=== PATIENT | female | born 2005 | race Two or more races ===

== ENCOUNTER 2024-06-28 09:48 | Outpatient (CLI) | payer OTHER, SELFPAY ==
--- NOTE | ~2024-06-28 | US_ITS ---
Pelvic ultrasound. Clinical History: First trimester , amenorrhea, establish dates Technique: Realtime transabdominal scanning of the pelvis was performed. Color flow Doppler and Doppl er spectral analysis were performed. Findings: The uterus is anteverted, and contains an intrauterine gestation. Downey-rump length of 5.7 cm corresponds to an estimated gestational age of 12 weeks 2 days. heart rate is 159 bpm. Neither ovary seen. No adnexal mass seen. There is no evidence of free fluid in the cul de sac. Impression: Live intrauterine gestation, with estimated gestational age of 12 weeks 2 days. heart rate is 1 59 bpm. Sonographic WOOD is 01/08/2025. Reviewed, dictated and finalized at location M. B THERAPY MANAGER Impression: Live intrauterine gestation, with estimated gestational age of 12 weeks 2 days. heart rate is 159 bpm. Sonographic WOOD is 01/08/2025.
== END 2024-06-28 09:49 | disposition home or self-care (01) ==
PROVIDERS: PCP Obstetrics & Gynecology; Visit Provider Nurse Practitioner Obstetrics & Gynecology
DX: N91.2 Amenorrhea, unspecified (principal); Z3A.12 12 weeks gestation of pregnancy
CPT/HCPCS: 76801

== ENCOUNTER 2024-07-26 10:58 | Outpatient (CLI) | payer OTHER, SELFPAY ==
[2024-07-26 11:30] LABS: Hematocrit 31.7 % (37.0-47.0); Hemoglobin 10.1 g/dL (12.0-15.0); Immature Platelet Fraction Pct 14.8 % (0.9-11.2); Mean Corpuscular HGB Conc 31.9 g/dl (32-36); Mean Corpuscular Hemoglobin 26.4 pg (26-34); Mean Platelet Volume 12.7 fl (7.4-10.4); Platelet Count Result 111 k/mm3 (150-375); Red Blood Count 3.82 M/mm3 (4.2-5.4); Red Cell Distribution Width 16.4 % (11.5-14.5); White Blood Count 6.2 K/mm3 (4.5-10.0)
[2024-07-26 12:01] LABS: Add Urine Microscopic? NO; Appearance Urine Clear (Clear); Bilirubin Urine Negative (Negative); Blood Urine Negative (Negative); Color Urine Yellow (Yellow); Glucose Urine UA Negative (Negative); Ketones Urine Negative (Negative); Leukocyte Esterase Ur Negative LEU/UL (Negative); Nitrate Urine Negative (Negative); Protein Urine Negative (Negative); Specific Grav Ur 1.005 (1.001-1.035); Urobilinogen Urine 0.2 mg/dL (<2.0)
[2024-07-26 12:18] LABS: HIV 1/2 Ab P24 Ag Result Negative (Negative)
[2024-07-26 12:21] LABS: Hepatitis B Surface Antigen Negative (Negative); Rubella IgG Antibody 75.2 IU/ML
[2024-07-26 12:29] LABS: Syphilis IgG/IgM Antibody Negative (Negative)
[2024-07-26 12:38] LABS: Hepatitis C Virus Antibody Negative (Negative)
[2024-07-27 17:12] LABS: Varicella IgG Antibody <1.00 S/CO
[2024-07-27 18:43] LABS: Hematocrit 31.9 % (35.0-45.0); Hemoglobin 10.4 g/dL (11.7-15.5); MCH 26.9 pg (27.0-33.0); MCV 82.4 fL (80.0-100.0); RDW 16.4 % (11.0-15.0); Red Blood Cell Count 3.87 Million/uL (3.80-5.10)
== END 2024-07-26 10:59 | disposition home or self-care (01) ==
PROVIDERS: Visit Provider Obstetrics & Gynecology
DX: Z34.90 Encounter for supervision of normal pregnancy, unspecified, unspecified trimester (principal); Z3A.00 Weeks of gestation of pregnancy not specified
CPT/HCPCS: 36415; 81003; 83021; 84443; 85027; 85055; 86593; 86703; 86762; 86787; 86803; 86850; 86900; 86901; 87086; 87340; G0432

== ENCOUNTER 2024-10-07 12:45 | Outpatient (CLI) | payer OTHER, SELFPAY ==
[2024-10-07 14:44] LABS: Hematocrit 31.7 % (37.0-47.0); Hemoglobin 9.8 g/dL (12.0-15.0); Immature Platelet Fraction Pct 13.3 % (0.9-11.2); Mean Corpuscular HGB Conc 30.9 g/dl (32-36); Mean Corpuscular Hemoglobin 28.1 pg (26-34); Mean Corpuscular Volume 90.8 fl (80-100); Mean Platelet Volume 13.4 fl (7.4-10.4); Platelet Count Result 114 k/mm3 (150-375); Red Blood Count 3.49 M/mm3 (4.2-5.4); Red Cell Distribution Width 16.6 % (11.5-14.5); White Blood Count 8.2 K/mm3 (4.5-10.0)
[2024-10-07 15:02] LABS: Glucose 1 Hour PP 50gm Dose 98 mg/dL
--- OUTSIDE RECORDS SUMMARY | 2024-10-08 13:28 | XMS_ITS | Clinical Summary ---
Author Organization [facility] Address [address] [place] [address] Phone Care Team Providers Care Strategic Procurement Manager Name Role Phone Unavailable Primary Care Provider Unavailabl e Encounters Date Type Department Care Team Description 09/20/2024 External Device Data STL ABSTRACTION Provider, Abstract 08/24/2024 External Device Data STL ABSTRACTION Provider, Abstract 08/24/2024 External Device Data STL ABSTRACTION Provider, Abstract 08/23/2024 External Device Data STL ABSTRACTION Provider, Abstract 08/22/2024 10:31 AM CDT - 08/22/2024 11:59 PM CDT Hospital Encounter [facility] Maternal and Health [facility] [address] [place] [id number] Ruslan Cortez MD Discharge Disposition: Home or Self Care from Last 3 Months Social History Tobacco Use Types Packs/Day Years Used Date Smoking Tobacco: Never Assessed Comments Unknown Sex and Gender Information Value Date Recorded Sex Assigned at Not on file Legal Sex Female 1:58 PM 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 BLASTING Gender Identity Not on file Sexual Orientation Not on file Plan of Treatment Health Maintenance Due Date Last Done Comments CHLAMYDIA SCREENING (ANNUAL) 11-24 YEARS 01/20/2015 HPV VACCINES (1 - 3-dose series) 01/20/2019 DTAP/TDAP/TD VACCINES (1 - Tdap) 01/20/2023 HEPATITIS B VACCINES (1 of 3 - 19+ 3-dose series) 01/06 INFLUENZA VACCINE (#1) 2024 Procedures Procedure Name Priority Date/Time Associated Diagnosis Comments US OB 14+ WKS SINGLE GEST Routine 08/22/2024 11:41 AM CDT screening for malformation using ultrasonics from Last 3 Months Results * US OB 14+ WKS SINGLE GEST (08/22/2024 11:41 AM CDT) Anatomical Region Laterality Modality Pelvis Ultrasound 08/22/2024 10:4 6 AM CDT Narrative 08/22/2024 11:50 AM CDT STL BASIC ----- Pat. Name: KEITH ROSENBERG Study Date: 08/22/2024 10:46am Pat. NO: [id number] Referring MD: RUSLAN CORTEZ MD Site: [place] [employer] Operator: Tequila Low RDMS : 2005 Age: 19 ----- INDICATION ----- Anatomy Survey CODING ----- Diagnoses Z3A.20: Weeks of gestation Z36.3: Encounter for screening for malformations Procedures [id number]: Ultrasound, uterus, real time with image documentation, and maternal evaluation, after first trimester (> or = 14 weeks 0 days), transabdominal approach; single or first gestation METHOD ----- Transabdominal ultrasound examination ----- Umana . Number of fetuses: 1 DATING ----- Cycle: regular cycle Method of dating: based on stated WOOD GA by prior assessment 20 w + 0 d WOOD by prior assessment: 01/09/2025 Ultrasound examination on: 08/22/2024 GA by U/S based upon: AC, BPD, EFW, Femur, HC GA by U/S 20 w + 4 d WOOD by U/S: 01/05/2025 Assigned: based on stated WOOD, selected on 08/22/2024 Assigned GA 20 w + 0 d Assigned WOOD: 01/09/2025 BIOMETRY ----- BPD 48.4 mm 20w 4d 76% Hadlock OFD 64.9 mm 22w 0d 97% Aubrie HC 182.3 mm 20w 4d 71% Hadlock Cerebellum tr 20.5 mm 20w 2d 63% Multani Nuchal fold 2.5 mm AC 159.0 mm 21w 0d 77% Hadlock Femur 32.3 mm 20w 0d 45% Hadlock Humerus 32.9 mm 21w 1d 88% Aubrie HC / AC 1.15 34% Nicolaides Weight Calculation: EFW 364 g 20w 3d 77% Hadlock EFW (lb,oz) 0 lb 13 oz EFW by Hadlock ([id number]) Head / Face / Neck Biometry: Entertainment Agent 6.2 mm CM 5.9 mm 78% Nicolaides Outer IOD 31.5 mm 20w 2d 31% Aubrie Extremities / Bony Struc Biometry: FL / BPD 0.67 21% Hadlock FL / HC 0.18 26% Hadlock FL / AC 0.20 13% Hadlock GENERAL EVALUATION ----- Cardiac activity present. FHR 149 bpm. movements: visualized. Presentation: Variable Placenta: Placental site: anterior Umbilical cord: Cord vessels: 3 vessel cord. Insertion site: placental insertion: normal Amniotic fluid: Amount of AF: normal amount. MVP 5.1 cm ANATOMY ----- The following structures appear normal: Head / Neck Cranium. Lateral ventricles. Choroid plexus. Midline falx. Cavum septi pellucidi. Cerebellum. Cisterna magna. Nuchal fold. Face Lips. Profile. Nose. Palate. Orbits. Heart / Thorax 4-chamber view. RVOT view. LVOT view. 3-vessel view. 3-dhcubz-wsydfti view. Situs. Aortic arch view. Superior vena cava. Inferior vena cava. High short axis view. Cardiac rhythm. Diaphragm. Abdomen Abdominal wall. Stomach. Kidneys. Bladder. Spine Cervical spine. Thoracic spine. Lumbar spine. Sacral spine. Extremities / Arms. Right hand. Left hand. Legs. Right foot. Left foot. Skeleton MATERNAL STRUCTURES ----- Cervix Visualized Approach - Transabdominal: Cervical length 38.1 mm Right Ovary Visualized Left Ovary Visualized Size 22 mm x 22 mm x 13 mm. Vol 3.4 cm GROWTH OVERVIEW ----- Exam date GA BPD (mm) HC (mm) AC (mm) FL (mm) HL (mm) EFW (g) 08/22/2024 20w 0d 48.4 76% 182.3 71% 159.0 77% 32.3 45% 32.9 88% 364 77% COMMENT ----- Patient's name and date of were confirmed by the tube fitter prior to the exam IMPRESSION ----- Impression: - Umana viable intrauterine at 20w 0d. - Estimated weight is 364 g (77%ile). - Amniotic fluid volume: normal amount (maximum vertical pocket 5.1 cm). - Placenta anterior. No previa, not low lying. - Placental cord insertion: normal. - Anatomic views are complete. - No structural abnormalities noted. No markers for aneuploidy appreciated. - The cervical length is 38.1 mm. Comments: A basic anatomic survey was performed. The presence of a normal anatomic survey does not rule out genetic, chromosomal or structural anomalies. Recommendation: - Follow up as clinically indicated. - Consider interval growth and anatomy at 32-36 weeks at location of primary provider's preference unless clinically indicated earlier. Thank you for inviting us to participate in your patient's care. Procedure Note Linda Zuniga MD - 08/22/2024 STL BASIC ----- Stacie. Name:Nga ROSENBERG Date:08/22/2024 10:46am Pat. NO: [id number] MD:RUSLAN CORTEZ [facility]equila Low RDMS :2005Age:19 ----- INDICATION ----- Anatomy Survey CODING ----- Diagnoses Z3A.20: Weeks of gestation Z36.3: Encounter for screening [facility] Procedures [id number]: Ultrasound, uterus, real time withimage documentation, and maternal evaluation, after first trimester (> or = 14 weeks 0 days),transabdominal approach; single or first gestation METHOD ----- Transabdominal ultrasound examination ----- Umana . Number of fetuses: 1 DATING ----- Cycle:regular cycle Method of dating:based on stated WOOD GA by prior [id number] w + 0 d WOOD by prior assessment:01/09/2025 Ultrasound examination on:08/22/2024 GA by U/S based upon:AC, BPD, EFW, Femur, HC GA by U/S20 w + 4 d WOOD by U/S:01/05/2025 Assigned:based on stated WOOD, selected on 08/22/2024 Assigned GA20 w + 0 d Assigned WOOD:01/09/2025 BIOMETRY ----- BPD 48.4 mm 20w 4d76% Hadlock OFD 64.9 mm 22w 0d97% Aubrie HC 182.3 mm 20w 4d71% Hadlock Cerebellum tr 20.5 mm 20w 2d63% Multani Nuchal fold 2.5 mm AC 159.0 mm 21w 0d77% Hadlock Femur 32.3 mm 20w 0d45% Hadlock Humerus 32.9 mm 21w 1d88% Aubrie HC / AC 1.15 34%Nicoshireenides Weight Calculation: EFW 364 g 20w 3d 77%Hadlock EFW (lb,oz) 0 lb 13 oz EFW by Hadlock ([id number]) Head / Face / Neck Biometry: Entertainment Agent 6.2 mm CM 5.9 mm 78%Nicolaides Outer IOD 31.5 mm 20w 2d 31%Aubrie Extremities / Bony Struc Biometry: FL / BPD 0.67 21%Hadlock FL / HC 0.18 26%Hadlock FL / AC 0.20 13%Hadlock GENERAL EVALUATION ----- Cardiac activity present. FHR 149 bpm. movements: visualized.Presentation: Variable Placenta: Placental site: anterior Umbilical cord: Cord vessels: 3 vessel cord. Insertion site: placentalinsertion: normal Amniotic fluid: Amount of AF: normal amount. MVP 5.1 cm ANATOMY ----- The following structures appear normal: Head / Neck Cranium. Lateral ventricles. Choroid plexus.Midline falx. Cavum septi pellucidi. Cerebellum. Cisterna magna. Nuchal fold. Face Lips. Profile. Nose. Palate. Orbits. Heart / Thorax 4-chamber view. RVOT view. LVOT view. 3-vesselview. 3-rhuklf-jcurxio view. Situs. Aortic arch view. Superior vena cava. Inferior vena cava. High shortaxis view. Cardiac rhythm. Diaphragm. Abdomen Abdominal wall. Stomach. Kidneys. Bladder. Spine Cervical spine. Thoracic spine. Lumbar spine.Sacral spine. Extremities / Arms. Right hand. Left hand. Legs. Right foot.Left foot. Skeleton MATERNAL STRUCTURES ----- Cervix Visualized Approach - Transabdominal: Cervical length 38.1mm Right Ovary Visualized Left Ovary Visualized Size 22 mm x 22 mm x 13 mm. Vol 3.4 cm GROWTH OVERVIEW ----- Exam date GA BPD (mm) HC (mm) AC (mm) FL(mm) HL (mm) EFW (g) 08/22/2024 20w 0d 48.4 76% 182.3 71% 159.0 77%32.3 45% 32.9 88% 364 77% COMMENT ----- Patient's name and date of were confirmed by the tube fitter priorto the exam IMPRESSION ----- Impression: - Umana viable intrauterine at 20w 0d. - Estimated weight is 364 g (77%ile). - Amniotic fluid volume: normal amount (maximum vertical pocket 5.1 cm). - Placenta anterior. No previa, not low lying. - Placental cord insertion: normal. - Anatomic views are complete. - No structural abnormalities noted. No markers for aneuploidyappreciated. - The cervical length is 38.1 mm. Comments: A basic anatomic survey was performed. The presence of anormal anatomic survey does not rule out genetic, chromosomal or structural anomalies. Recommendation: - Follow up as clinically indicated. - Consider interval growth and anatomy at 32-36 weeks at location ofprimary provider's preference unless clinically indicated earlier. Thank you for inviting us to participate in your patient's care. us Ruslan Cortez MD US ORDERABLES Final Result from Last 3 Months Insurance STUDENT RESOURCES [id number]
== END 2024-10-07 12:46 | disposition home or self-care (01) ==
LOC: ANHLAB 12:46
PROVIDERS: Visit Provider Obstetrics & Gynecology
DX: Z34.90 Encounter for supervision of normal pregnancy, unspecified, unspecified trimester (principal); Z3A.00 Weeks of gestation of pregnancy not specified
CPT/HCPCS: 36415; 82947; 85027; 85055

== ENCOUNTER 2024-11-09 15:15 | Outpatient (CLI) | payer OTHER, SELFPAY ==
--- OUTSIDE RECORDS SUMMARY | 2024-11-09 15:18 | XMS_ITS | Clinical Summary ---
Author Organization [facility] Address [address] [place] [address] Care Team Providers Care Outfitter Cabin Name Role Phone Unavailable Primary Care Provider Unavailabl e Source Comments [facility],non-owned Affiliates and Associated Physician Practices is amultiple site organization consisting of ambulatory clinics and hospital sitesin [place], [place], [place] and [place]. This disclosure is being madepursuant to the Care Everywhere program and may not contain all information available regarding this patient. Last updated 18.[facility] [employer] Allergies No known active allergies Social History Tobacco Use Types Packs/Day Years Used Date Smoking Tobacco: Never Assessed Estimated Date of Delivery Comme nts Yes 01/09/2025 Based on last me nstrual period of 04/04/2024 Sex and Gender Information Value Date Recorded Sex Assigned at Not on file Legal Sex Female 11:20 AM CDT Gender Identity Not on file Sexual Orientation Not on file Plan of Treatment Upcoming Encounters Date Type Department Care Team (Late st Contact Info) Description 11/18/2024 10:30 AM CDT Hospital Encounter [facility] Women's Health Maternal & Care [facility] [place] [address] Health Maintenance Due Date Last Done Comments HIV SCREENING 01/20/2019 HPV VACCINE (1 - 3-dose series) 01/20/2019 CHLAMYDIA/GONORRHEA SCREENING 2020 MENINGOCOCCAL (Group B) VACC INE SHARED DECISION-MAKING (1 of 2 - Standard) 2020 HEPATITIS C SCREENING 01/16/2022 DTAP/TDAP/TD VACCINES (1 - Tdap) 01/20/2023 HEPATITIS B VACCINE (1 of 3 - 19+ 3-dose series) 01/20/2023 COVID-19 VACCINE ( - 2023-2 5 season) 2024 DEPRESSION SCREENING 06/08/2024 INFLUENZA VACCINE (Season Ended) 2025 ZOSTER VACCINE (1 of 2) 01/20/2054 HIB VACCINE Aged Out No longer eligi ble based on patient's age to complete this topic MENINGOCOCCAL GROUPS A/C/Y/W VACCINE Aged Out No longer eligible b ased on patient's age to complete this topic PNEUMOCOCCAL VACCINE Aged Out No long er eligible based on patient's age to complete this topic
--- OUTSIDE RECORDS SUMMARY | 2024-11-09 15:18 | XMS_ITS | Clinical Summary ---
Author Organization [facility] Address [address] [place] [address] Phone Care Team Providers Care Neon Molder Name Role Phone Unavailable Primary Care Provider Unavailabl e Encounters Date Type Department Care Team Description 11/01/2024 External Device Data STL ABSTRACTION Provider, Abstract 10/27/2024 External Device Data STL ABSTRACTION Provider, Abstract 10/26/2024 External Device Data STL ABSTRACTION Provider, Abstract 10/25/2024 External Device Data STL ABSTRACTION Provider, Abstract 09/20/2024 External Device Data STL ABSTRACTION Provider, Abstract 08/24/2024 External Device Data STL ABSTRACTION Provider, Abstract 08/24/2024 External Device Data STL ABSTRACTION Provider, Abstract 08/23/2024 External Device Data STL ABSTRACTION Provider, Abstract 08/22/2024 10:31 AM CDT - 08/22/2024 11:59 PM CDT Hospital Encounter [facility] Maternal and Health 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 NO: [id number] Referring MD: RUSLAN CORTEZ MD Site: [place] [employer] Supervisor: Tequila Low RDMS : 2005 Age: 19 ----- INDICATION ----- Anatomy Survey CODING ----- Diagnoses Z3A.20: Weeks of gestation Z36.3: Encounter for screening for malformations Procedures [id number]: Ultrasound, uterus, real time with image documentation, [...] 0 lb 13 oz EFW by Hadlock ([id number]) Head / Face / Neck Biometry: Pasta Maker 6.2 mm CM 5.9 mm 78% Nicolaides [...] view. RVOT view. LVOT view. 3-vessel view. 5-izpbmh-ulnfbzm view. Situs. Aortic arch view. Superior vena [...] and date of were confirmed by the toilet attendant prior to the exam IMPRESSION ----- Impression: [...] Zuniga MD - 08/22/2024 STL BASIC ----- Pat. Name:Nga ROSENBERG Date:08/22/2024 10:46am Pat. NO: [id number] MD:RUSLAN CORTEZ [facility] Low RDMS :2005Age:19 ----- INDICATION ----- Anatomy Survey CODING ----- Diagnoses Z3A.20: Weeks of gestation Z36.3: [facility] [id number]: Ultrasound, uterus, real time withimage documentation, and maternal evaluation, after first trimester (> or = 14 weeks 0 days),transabdominal approach; single or first gestation METHOD ----- Transabdominal ultrasound examination ----- Umana . Number of fetuses: 1 DATING ----- Cycle:regular cycle Method of dating:based on stated WOOD GA by prior [id number] w + 0 d WOOD by prior [...] 21w 1d88% Aubrie HC / AC 1.15 34%Nicolaides Weight Calculation: EFW 364 g 20w 3d 77%Hadlock EFW (lb,oz) 0 lb 13 oz EFW by Hadlock ([id number]) Head / Face / Neck Biometry: Pasta Maker 6.2 mm CM 5.9 mm 78%Nicolaides Outer [...] 4-chamber view. RVOT view. LVOT view. 3-vesselview. 0-btbout-qznddap view. Situs. Aortic arch view. Superior vena [...] and date of were confirmed by the toilet attendant priorto the exam IMPRESSION ----- Impression: - [...] your patient's care. us Ruslan Cortez MD ORDERABLES Final Result from Last 3 Months Insurance STUDENT RESOURCES [id number]
[2024-11-09 15:48] LABS: Hematocrit 33.4 % (37.0-47.0); Hemoglobin 10.6 g/dL (12.0-15.0); Immature Platelet Fraction Pct 18.2 % (0.9-11.2); Mean Corpuscular HGB Conc 31.7 g/dl (32-36); Mean Corpuscular Volume 88.1 fl (80-100); Mean Platelet Volume 13.6 fl (7.4-10.4); Platelet Count Result 103 k/mm3 (150-375); Red Blood Count 3.79 M/mm3 (4.2-5.4); Red Cell Distribution Width 15.3 % (11.5-14.5); White Blood Count 9.2 K/mm3 (4.5-10.0)
[2024-11-09 17:22] LABS: HIV 1/2 Ab P24 Ag Result Negative (Negative)
[2024-11-09 18:33] LABS: Syphilis IgG/IgM Antibody Negative (Negative)
== END 2024-11-09 15:16 | disposition home or self-care (01) ==
LOC: ANHLAB 15:16
PROVIDERS: Visit Provider Nurse Practitioner Family
DX: Z34.90 Encounter for supervision of normal pregnancy, unspecified, unspecified trimester (principal)
CPT/HCPCS: 36415; 85027; 85055; 86593; 86703; G0432

== ENCOUNTER 2024-11-11 15:47 | Outpatient (CLI) | payer OTHER, SELFPAY ==
--- OUTSIDE RECORDS SUMMARY | 2024-11-11 15:51 | XMS_ITS | Clinical Summary ---
Author Organization [facility] Address [address] [place] [address] Phone Care Team Providers Care Clerical Production Worker Name Role Phone Unavailable Primary Care Provider [...] - 08/22/2024 11:59 PM CDT Hospital Encounter [facility] Maternal and Health [facility] [address] [place] [phone] Ruslan Cortez MD Discharge Disposition: Home or Self Care from Last 3 Months Social History Tobacco Use Types Packs/Day Years Used Date Smoking Tobacco: Never Assessed Comments Unknown Sex and Gender Information Value Date Recorded Sex Assigned at Not on file Legal Sex Female 1:58 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 NO: [id number] Referring MD: RUSLAN CORTEZ MD Site: [facility] Erector: Tequila Low RDMS : 2005 Age: 19 ----- INDICATION ----- Anatomy Survey CODING ----- Diagnoses Z3A.20: Weeks of gestation Z36.3: Encounter for screening for malformations Procedures [id number]: Ultrasound, uterus, real time with image documentation, [...] 0 lb 13 oz EFW by Hadlock ([id number]) Head / Face / Neck Biometry: Drupal Programmer 6.2 mm CM 5.9 mm 78% Nicolaides [...] view. RVOT view. LVOT view. 3-vessel view. 2-qnzbne-ddudbza view. Situs. Aortic arch view. Superior vena [...] and date of were confirmed by the aviation technician prior to the exam IMPRESSION ----- Impression: [...] Pat. Name:Nga ROSENBERG Date:08/22/2024 10:46am Pat. NO: [id number] MD:RUSLAN CORTEZ [facility] Low RDMS :2005Age:19 ----- INDICATION ----- Anatomy Survey CODING ----- Diagnoses Z3A.20: Weeks of gestation Z36.3: [facility] 11552: Ultrasound, uterus, real time withimage documentation, and maternal evaluation, after first trimester (> or = 14 weeks 0 days),transabdominal approach; single or first gestation METHOD ----- Transabdominal ultrasound examination ----- Umana . Number of fetuses: 1 DATING ----- Cycle:regular cycle Method of dating:based on stated WOOD GA by prior [id number] w + 0 d WOOD by prior [...] 0 lb 13 oz EFW by Hadlock ([id number]) Head / Face / Neck Biometry: Drupal Programmer 6.2 mm CM 5.9 mm 78%Nicolaides Outer [...] 4-chamber view. RVOT view. LVOT view. 3-vesselview. 1-ymlzub-jywpmcq view. Situs. Aortic arch view. Superior vena [...] and date of were confirmed by the aviation technician priorto the exam IMPRESSION ----- Impression: - [...] from Last 3 Months Insurance STUDENT RESOURCES [id number]
--- OUTSIDE RECORDS SUMMARY | 2024-11-11 15:51 | XMS_ITS | Clinical Summary ---
Author Organization [facility] Address [address] [place] [address] Care Team Providers Care Marshmallow Machine Worker Name Role Phone Unavailable Primary Care Provider Unavailabl e Source Comments [facility],non-owned Affiliates and Associated Physician Practices is amultiple site organization consisting of ambulatory clinics and hospital sitesin [place], [place], [place] and [place]. This disclosure is being madepursuant to the Care Everywhere program and may not contain all information available regarding this patient. Last updated 18.[facility] [employer] Allergies No known active allergies Social History [...] Description 11/18/2024 10:30 AM CDT Hospital Encounter [facility] Women's Health Maternal & Care [facility] [place] [address] Health Maintenance Due Date Last Done Comments [...]
[2024-11-11 17:26] LABS: Alanine Aminotransferase 20 U/L (6-35); Albumin Level 3.8 g/dL (3.5-5.1); Alkaline Phosphatase 128 U/L (38-126); Anion Gap 9 mmol/L (4-12); Aspartate Amino Transferase 27 U/L (14-36); Bilirubin,Total 0.3 mg/dL (0.2-1.3); Blood Urea Nitrogen 8 mg/dL (7-17); Calcium 9.5 mg/dL (8.4-10.2); Carbon Dioxide 21 mmol/L (22-30); Chloride 107 mmol/L (98-107); Estimated Glomerular Filt Rate > 60; Glucose 77 mg/dL (65-110); Potassium 3.7 mmol/L (3.4-5.0); Sodium 137 mmol/L (137-145); Total Protein 7.1 g/dL (6.3-8.2)
== END 2024-11-11 15:48 | disposition home or self-care (01) ==
LOC: ANHLAB 15:49
PROVIDERS: Visit Provider Nurse Practitioner Family
DX: D69.6 Thrombocytopenia, unspecified (principal)
CPT/HCPCS: 36415; 80053

== ENCOUNTER 2024-11-23 14:20 | Outpatient (RCR) | payer OTHER, SELFPAY ==
[2024-11-23 15:00] VITALS: BP 112/71; PULSE 97
[2024-11-23 15:15] VITALS: BP 110/71; PULSE 100
[2024-11-23 16:00] LABS: Hematocrit 33.5 % (37.0-47.0); Hemoglobin 10.6 g/dL (12.0-15.0); Immature Granulocyte Percent A 0.9 % (0-0.5); Lymphocytes Absolute Auto 1.05 K/mm3 (0.9-3.2); Mean Corpuscular HGB Conc 31.6 g/dl (32-36); Mean Corpuscular Hemoglobin 27.5 pg (26-34); Mean Corpuscular Volume 86.8 fl (80-100); Nucleated Red Blood Cells Absolute Auto 0.000 K/mm3 (0.0-0.012); Nucleated Red Blood Cells Perc 0.0 % (0.0-0.2); Platelet Count Result 107 k/mm3 (150-375); Red Blood Count 3.86 M/mm3 (4.2-5.4); White Blood Count 9.1 K/mm3 (4.5-10.0)
[2024-11-23 16:14] VITALS: BP 112/71; PULSE 94
[2024-11-23 16:16] LABS: Glucose 1 Hour PP 50gm Dose 135 mg/dL
--- OUTSIDE RECORDS SUMMARY | 2024-11-23 16:22 | XMS_ITS | Clinical Summary ---
Author Organization [facility] Address [address] [place] [address] Care Team Providers Care Opener Name Role Phone Unavailable Primary Care Provider Unavailabl e Source Comments [facility],non-owned Affiliates and Associated Physician Practices is amultiple site organization consisting of ambulatory clinics and hospital sitesin [place], [place], [place] and [place]. This disclosure is being madepursuant to the Care Everywhere program and may not contain all information available regarding this patient. Last updated 18.[facility] Allergies No known active allergies Encounters Date Type Department Care Team Description 11/18/2024 10:24 AM CDT - 11/18/2024 11:59 PM CDT Hospital Encounter [facility] M[facility] & [facility] [address] [place] [address] Josue Smith MD PARING MACHINE OPERATOR Discharge Disposition: Home or Self Care 11/18/2024 Travel from Last 3 Months Social History Tobacco [...] Care Team (Late st Contact Info) Description 11/30/2024 11:15 AM CDT Appointment [facility] [address] [place] [id number] 12/14/2024 7:30 AM CDT Appointment [facility] Maternal & Care [address] [place], [place] [address] Health Maintenance Due Date Last Done Comments HIV SCREENING 01/20/2019 HPV VACCINE (1 - 3-dose series) 01/20/2019 CHLAMYDIA/GONORRHEA SCREENING 2020 MENINGOCOCCAL (Group B) VACC INE SHARED DECISION-MAKING (1 of 2 - Standard) 2020 HEPATITIS C SCREENING 01/16/2022 DTAP/TDAP/TD VACCINES (1 - Tdap) 01/20/2023 HEPATITIS B VACCINE (1 of 3 - 19+ 3-dose series) 01/20/2023 COVID-19 VACCINE (1 - 2023-2 5 season) 2024 DEPRESSION SCREENING 06/08/2024 OB-ONE HOUR GLUCOSE 10/03/2024 OB-RHOGAM INJECTION 10/17/2024 OB-GROUP B STREP SCREEN 12/05/2024 INFLUENZA VACCINE (Season Ended) 2025 ZOSTER VACCINE (1 of 2) 01/20/2054 OB-TDAP CURRENT Completed 10/26/2024 HIB VACCINE Aged Out No longer eligi ble based on patient's age to complete this topic MENINGOCOCCAL GROUPS A/C/Y/W VACCINE Aged Out No longer eligible b ased on patient's age to complete this topic PNEUMOCOCCAL VACCINE Aged Out No long er eligible based on patient's age to complete this topic Respiratory Syncytial Virus (RSV) Vaccine Pt: or over 60 yrs (No Doses Required) Completed Procedures Procedure Name Priority Date/Time Associated Diagnosis Comments SONOGRAM - COMPLETE Routine 11/18/2024 1 0:55 AM CDT Encounter for ultrasound to assess growth (HCC) Encounter for anatomic survey (HCC) 32 weeks gestation of (HCC) from Last 3 Months Results * SONOGRAM - COMPLETE (11/18/2024 10:55 AM CDT) Linked Results Indication ======== Growth Assessment Thrombocytopenia History ====== OB History 1 Maternal Assessment Physical Exam Height 157 cm, 5 ft 2 in. Weight 73 kg, 160 lb. Initial weight 61 kg, 134 lb. BMI 29.26 kg/m . Initial BMI 24.51 kg/m . Weight gain 12 kg, 26 lb Method ====== Transabdominal ultrasound. View: Suboptimal view: limited by late gestational age and position ========= Umana . Number of fetuses: 1 Dating ====== Date Details Gest. age WOOD LMP 04/04/2024 32 w + 4 d 01/09/2025 Stated WOOD 32 w + 5 d 01/08/2025 Previous U/S 06/28/2024 CRL 57.0 mm 32 w + 5 d 01/08/2025 U/S 11/18/2024 based upon AC, BPD, Femur, HC 35 w + 1 d 12/22/2024 Assigned dating based on the LMP, selected on 11/18/2024 32 w + 4 d 01/09/2025 General Evaluation Cardiac activity present. FHR 143 bpm. Presentation: transverse, head maternal left Placenta: Placental site: anterior no previa Umbilical cord: Cord vessels: 3 vessel cord. Insertion site: normal insertion Amniotic fluid: Amount of AF: mild polyhydramnios. MVP 8.8 cm. EVERARDO 26.2 cm. Q1 7.0 cm, Q2 4.6 cm, Q3 8.8 cm, Q4 5.9 cm Biometry BPD 89.6 mm 36w 2d >99% Hadlock HC 326.7 mm 37w 0d 98% Hadlock Cerebellum tr 47.9 mm >99% [place] AC 302.4 mm 34w 1d 90% Hadlock Femur 63.8 mm 33w 0d 49% Hadlock Humerus 57.3 mm 33w 2d 76% Aubrie HC / AC 1.08 -/- Hadlock Weight Calculation: EFW 2,407 g 89% Hadlock EFW (lb,oz) 5 lb 5 oz EFW by Hadlock ([id number]) Head / Face / Neck Biometry: CM 5.0 mm 3% Nicolaides appropriate Growth Overview Exam date GA BPD (mm) HC (mm) AC (mm) FL (mm) HL (mm) EFW (g) 11/18/2024 32w 4d 89.6 >99% 326.7 98% 302.4 90% 63.8 49% 57.3 76% 2407 89% Anatomy The following structures appear normal: Head / Neck Cranium. Midline falx. Cavum septi pellucidi. Cerebellum. Cisterna magna. Thalami. Face Profile. Nasal bone. Orbits. Heart / Thorax 4-chamber view. 3-vessel view. 3-luxdvu-rpihefo view. Diaphragm. Abdomen Stomach. Kidneys. Bladder. Bowel. Genitals. Extremities / Skeleton Left arm. Left leg. The following structures could not be adequately visualized: Head / Neck Lateral ventricles. Choroid plexus. Face Lips. Nose. Heart / Thorax RVOT view. LVOT view. Situs. Aortic arch view. Bicaval view. Ductal arch view. Great vessels. Right lung. Left lung. Abdomen Cord insertion. Spine Cervical spine. Thoracic spine. Lumbar spine. Sacral spine. Extremities / Skeleton Arms. Hands. Right arm. Legs. Feet. Right leg. Maternal Structures Right Ovary Not visualized Left Ovary Not visualized Impression ========= Here today for interval growth ultrasound as recommended at 20 week ultrasound at [facility] (report was reviewed). She had anatomical survey at that time that had showed no gross abnormalities. Single live intrauterine at 32w 4d The size is appropriate for the established gestational age but trending LGA. The amniotic fluid volume is mild polyhydramnios. Normal appearing anterior placenta. No major malformations were seen within the limitations of ultrasound. Comment ======== The biometry is showing good interval growth in the estimated weight is 89 % AC 90% which is upper limits of AGA and trending towards LGA. This is most likely constitutional in light of negative glucose screen but can not rule out GDM with certainty. The amniotic fluid is mildly increased consistent with mild polyhydramnios. The increase in amniotic fluid may be a normal variant due to the dynamic nature of amniotic fluid volume and in many cases the increase in amniotic fluid or polyhydramnios is idiopathic and has unknown cause. However in certain cases it may be related to over production such as diabetes or obstructive such as GI (i.e. TE fistula ) or neurological with swallowing. However none of these were noted. Increase in amniotic fluid has been associated with increased risk for malpresentation cord accident rupture membranes abruption labor and delivery and intrauterine demise. Therefore recommend polyhydramnios precautions. Although a complete anatomical survey was not performed due to advanced gestation and positioning which limited the overall study, no gross abnormalities were noted. However certain structures remains suboptimally visualized due to advanced gestation and positioning which limited the overall study. Both ultrasound and screening/testing have their limitations in detecting all congenital anomalies and chromosomal abnormalities/inhe rited disorders or genetic syndromes. Follow-up ======== To return in 4 weeks for growth along with amniotic fluid check and attempt to complete anatomic survey. PTL and polyhydramnios precautions along with kick counts. Thank you for allowing us to partake in your patient's care. Coding ====== Procedures 50436: US Preg Uterus >14 weeks [facility] YR.MRKT PACS Anatomical Region Laterality Modality Other 11/18/2024 10:5 5 AM CDT Ruslan Azevedo MD [facility] ORDERABLES Edited Result - Final from Last 3 Months Insurance [facility]
--- OUTSIDE RECORDS SUMMARY | 2024-11-23 16:22 | XMS_ITS | Clinical Summary ---
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
== END 2025-01-05 09:54 | disposition other institution (70) ==
LOC: ANHOBOP 14:20
PROVIDERS: Visit Provider Obstetrics & Gynecology
DX: O36.8190 Decreased fetal movements, unspecified trimester, not applicable or unspecified (principal)
CPT/HCPCS: 36415; 59025; 82947; 85025

== ENCOUNTER 2024-12-02 07:20 | Outpatient (CLI) | payer OTHER, SELFPAY ==
[2024-12-02 08:22] LABS: Hematocrit 34.2 % (37.0-47.0); Hemoglobin 10.9 g/dL (12.0-15.0); Immature Platelet Fraction Pct 15.3 % (0.9-11.2); Mean Corpuscular HGB Conc 31.9 g/dl (32-36); Mean Corpuscular Hemoglobin 27.7 pg (26-34); Mean Platelet Volume 12.5 fl (7.4-10.4); Platelet Count Result 104 k/mm3 (150-375); Red Blood Count 3.93 M/mm3 (4.2-5.4); White Blood Count 10.4 K/mm3 (4.5-10.0)
[2024-12-02 08:29] LABS: Glucose Fasting Gestational 88 mg/dL (>/=95)
[2024-12-02 09:11] LABS: HIV 1/2 Ab P24 Ag Result Negative (Negative)
[2024-12-02 09:30] LABS: Syphilis IgG/IgM Antibody Non-Reactive (Nonreactive)
[2024-12-02 10:12] LABS: Glucose 1 Hour Gest 158 mg/dL (>/=180)
[2024-12-02 11:16] LABS: Glucose 2 Hour Gest 121 mg/dL (>/= 155)
[2024-12-02 12:32] LABS: Glucose 3 Hour Gest 106 mg/dL (>/=140)
== END 2024-12-02 07:21 | disposition home or self-care (01) ==
LOC: ANHLAB 07:21
PROVIDERS: Visit Provider Obstetrics & Gynecology
DX: O99.810 Abnormal glucose complicating pregnancy (principal); Z3A.00 Weeks of gestation of pregnancy not specified
CPT/HCPCS: 36415; 82951; 82952; 85027; 85055; 86593; 86703; G0432

== ENCOUNTER 2024-12-14 12:36 | Outpatient (CLI) | payer OTHER, SELFPAY ==
[2024-12-14 13:39] VITALS: BP 98/66; PULSE 93
[2024-12-14 13:45] LABS: OBXCEM ROM Plus Negative (Negative)
--- OUTSIDE RECORDS SUMMARY | 2024-12-14 13:47 | XMS_ITS | Clinical Summary ---
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
--- OUTSIDE RECORDS SUMMARY | 2024-12-14 13:47 | XMS_ITS | Encounter Summary ---
Author Organization [facility] Address [address] [place] [address] Care Team Providers Care Management Retail Intern Name Role Phone Unavailable Primary Care Provider Unavailabl e Reason for Referral * (Routine) - Open Specialty Diagnoses / Procedures Referred By Contac t Referred To Contact Diagnoses 34 weeks gestation of (HCC) Supervision of normal first in third trimester (HCC) Low platelet count Encounter for ultrasound to assess growth (HCC) Procedures Sonogram - Complete Ruslan Thomas MD [address] [place] [address] Phone: tel: fax: Referral ID Status Reason Start Date Expiration Date Visits Re quested Visits Authorized [id number] Open 12/05/2024 12/05/2025 1 1 * (Routine) - Open Specialty Diagnoses / Procedures Referred By Contac t Referred To Contact Diagnoses 34 weeks gestation of (HCC) Supervision of normal first in third trimester (HCC) Low platelet count Encounter for ultrasound to assess growth (HCC) Procedures Sonogram - Complete Ruslan Thomas MD [address] [facility] [address] [address] Phone: tel: fax: Referral ID Status Reason Start Date Expiration Date Visits Re quested Visits Authorized [id number] Open 12/05/2024 12/05/2025 1 1 Reason for Visit * Reason Comments Ultrasound Maternal Medicine Follow-up * Evaluate & Treat (Routine) - Authorized Specialty Diagnoses / Procedures Referred By Contac t Referred To Contact Maternal Medicine Diagnoses Low weight gain in , unspecified trimester (HCC) Thrombocytopenia affecting (HCC) Procedures NM FULL ROUT OBSTE CARE,VAGINAL DELIV Ruslan Thomas MD [address] [facility] [address] [place] [address] Phone: tel: fax: [facility] Maternal & Care [address] [place] [address] Phone: tel: fax: Referral ID Status Reason Start Date Expiration Date V isits Requested Visits Authorized [id number] Authorized 11/14/2024 03/12/2025 18 18 Encounter Details Date Type Department Care Team (Late st Contact Info) Description 12/14/2024 10:30 AM CDT Hospital Encounter [facility] Maternal & Care [address] [place], [place] [id number] Cindy Teague MD [address] [facility] [address] [place] [address] Social History Tobacco Use Types Packs/Day Years Used Date Smoking Tobacco: Never Smokeless Tobacco: Never Alcohol Use Standard Drinks/Week Comments Never 0 (1 standard drink = 0.6 oz pur e alcohol) Estimated Date of Delivery Comme nts Yes 01/09/2025 Based on last me nstrual period of 04/04/2024 Sex and Gender Information Value Date Recorded Sex Assigned at Not on file Legal Sex Female 11:20 AM CDT Gender Identity Not on file Sexual Orientation Not on file documented as of this encounter Last Filed Vital Signs Vital Sign Reading Time Taken Comments Blood Pressure 100/68 12/14/2024 10:49 AM CDT Pulse 94 12/14/2024 10:49 AM CDT Temperature - - Respiratory Rate - - Oxygen Saturation - - Inhaled Oxygen Concentration - - Weight 74 kg (163 lb 3.2 oz) 12/14/2024 10:49 AM CDT Height - - Body Mass Index 29.85 11/30/2024 11:08 AM CDT documented in this encounter Progress Notes * Calista Alegre, MASH FILTER CLOTH CHANGER-WINDOWS DESKTOP SUPPORT - 12/14/2024 11:00 AM CDT [facility] follow up visit Keith Rosenberg is a 19 year old 36w2d. We are following her for thrombocytopenia. She has no complaints today. She reports good FM, no bleeding, no LOF, no DC, no cramps/contractions/pain/pressure, no VALDEZ's, vision changes, RUQ pain, or swelling. Her is complicated by: Patient Active Problem List Diagnosis Date Noted Gestational thrombocytopenia without hemorrhage, third trimester (HCC) 12/06/2024 Priority: Not Prioritized Exam: BP 100/68 Pulse 94 Wt 74 kg (163 lb 3.2 oz) General: NAD Abdomen: soft, NT Extremities: equal in size and width bilaterally, NT, no sign of edema FHT: per US Urine dip: sample not produced EVERARDO 28cm US: Please see report for details. Impressions/Recs 1. IUP (Intrauterine ) at 36w2d 2. Gestational thrombocytopenia, clinically asymptomatic. Gestational thrombocytopenia is a common, usually benign disorder, that resolves after delivery however may recur in future pregnancies. I explained that it is a diagnosis of exclusion, so additionallab studies are indicated. Previously reviewed that there are generally enough platelets for a safe vaginal , or deliveryby c section. However, anesthesia usually requires a higher level of platelets for regional anesthesia. For that reason, close follow up for the duration of the is recommended. Additional labs done on 11/30/24 including CBC in a blue top, with peripheral smear, NIKKI, MEAGHAN B2 glycoprotein, TSH and free T4. All lab results reviewed and WNL, ptl 125. Follow up is planned with our office in 2 weeks, we will repeat the CBC at that time, weekly CBC/ PLT counts should be obtained after that. Order for CBC given today. [facility] standing order placed today for weekly CBC. Should her Platelet count fall below the permissible level at her planned delivery hospital ([facility]) (generally 80-100), we will plan a course of oral steroids, to attempt to increase the platelet count. At times, a dose of IV steroids close to delivery may be considered. 4. We reviewed kick counts (BID), as well as PTL and preeclampsia signs and symptoms. 5. RTC: 2 weeks CLIENT ENGAGEMENT MANAGER/US 6. Keep all appointments with primary OB I spent 30 minutes with the patient, greater than 50% of the time was spent face to face in discussion with the patient the remainder of the time was spent in chart prep and data review. The patient is to follow up with her primary obstetrical care provider for her routine care and acute OB care including delivery as clinically indicated. Once again, we appreciate the opportunity to assist you in the care of your patient. If issues arise for which I can be of help before her next visit here, please contact me directly, or contact one of the [facility] physicians. LG Celeste 12/14/2024 11:00 AM * Samantha Vásquez RN - 12/14/2024 10:56 AM CDT Patient here for provider visit and ultrasound. Denies contractions, denies vaginal bleeding, leakage of fluid, and reports good movement. RN reviewed kick counts. Denies headache, blurred vision, RUQ pain. Patient denies any complaints or concerns today. Patient reports she has been out of her PNV for 7 days and plans to buy more. Patient has preregistration appt today with [facility] and with Dr. Ingram. Patient Vitals for the past 6 hrs: Pulse BP 12/14/24 1049 94 100/68 Samantha Vásquez RN 12/14/2024 10:59 AM documented in this encounter Plan of Treatment Upcoming Encounters Date Type Department Care Team (Late st Contact Info) Description 12/28/2024 9:45 AM CDT Appointment [facility] Maternal & Care [address] [place] [phone] Scheduled Orders Name Type Priority Associated Diagnoses Orde r Schedule CBC WITH DIFFERENTIAL Lab Routine Gestational thrombocytopenia without hemorrhage, third trimester ([facility]) 1 Occurrences starting 12/14/2024 until 12/09/2025 documented as of this encounter Procedures Procedure Name Priority Date/Time Associated Diagnosis Comments SONOGRAM - COMPLETE Routine 12/14/2024 1 1:17 AM CDT 34 weeks gestation of ([facility]) Supervision of normal first in third trimester ([facility]) Low platelet count Encounter for ultrasound to assess growth ([facility]) documented in this encounter Results * Sonogram - Complete (12/14/2024 11:17 AM CDT) Linked Results Indication ======== screening for malformation Incomplete Anatomy Thrombocytopenia, unspecified Gestational History ====== OB History 1 Maternal Assessment Physical Exam Height 157 cm, 5 ft 2 in. Weight 74 kg, 163 lb. Initial weight 61 kg, 134 lb. BMI 29.81 kg/m . Initial BMI 24.51 kg/m . Weight gain 13 kg, 29 lb Method ====== Transabdominal ultrasound. View: Good view ========= Umana . Number of fetuses: 1 Dating ====== Date Details Gest. age WOOD LMP 04/04/2024 36 w + 2 d 01/09/2025 Stated WOOD 36 w + 3 d 01/08/2025 Previous U/S 06/28/2024 CRL 57.0 mm 36 w + 3 d 01/08/2025 U/S 12/14/2024 based upon AC, BPD, Femur, HC 38 w + 2 d 12/26/2024 Assigned dating based on the LMP, selected on 11/18/2024 36 w + 2 d 01/09/2025 General Evaluation Cardiac activity present. FHR 136 bpm. Presentation: cephalic Placenta: Placental site: anterior Umbilical cord: Cord vessels: 3 vessel cord - previously documented. Insertion site: normal insertion - previously documented Amniotic fluid: Amount of AF: mildly increased. MVP 9.2 cm. EVERARDO 28.8 cm. Q1 9.2 cm, Q2 7.2 cm, Q3 7.1 cm, Q4 5.4 cm Biometry BPD 96.3 mm 39w 2d >99% Hadlock HC 341.3 mm 39w 2d 88% Hadlock AC 336.4 mm 37w 4d 89% Hadlock Femur 72.0 mm 36w 6d 62% Hadlock Humerus 62.0 mm 35w 6d 62% Aubrie HC / AC 1.01 Weight Calculation: EFW 3,310 g 87% Hadlock EFW (lb,oz) 7 lb 5 oz EFW by Hadlock ([id number]) appropriate Growth Overview Exam date GA BPD (mm) HC (mm) AC (mm) FL (mm) HL (mm) EFW (g) 11/18/2024 32w 4d 89.6 >99% 326.7 98% 302.4 90% 63.8 49% 57.3 76% 2407 89% 12/14/2024 36w 2d 96.3 >99% 341.3 88% 336.4 89% 72 62% 62 62% 3310 87% Anatomy The following structures appear normal: Head / Neck Cranium. Face Lips. Profile. Nose. Nasal bone. Heart / Thorax RVOT view. Situs. Aortic arch view. Bicaval view. Ductal arch view. Great vessels. Abdomen Stomach. Kidneys. Bladder. Genitals. Spine Cervical spine. Thoracic spine. Lumbar spine. Sacral spine. Extremities / Skeleton Right arm. Right leg. The following structures could not be adequately visualized: Head / Neck Lateral ventricles. Choroid plexus. Heart / Thorax LVOT view. Right lung. Left lung. Abdomen Cord insertion. Extremities / Skeleton Hands. Feet. The following structures were documented previously: Head / Neck Midline falx. Cavum septi pellucidi. Cerebellum. Cisterna magna. Face Orbits. Heart / Thorax 4-chamber view. 3-vessel view. 9-mgbgov-ututafj view. Interventricular septum. Diaphragm. Extremities / Skeleton Left arm. Left leg. sex: male. Biophysical Profile 2: breathing movements 2: Gross body movements 2: tone 2: Amniotic fluid volume 01/13 Biophysical profile score Impression ========= Single, live, intrauterine at 36w 2d The growth is appropriate. The amniotic fluid volume is mildly increased. - Normal nose/lips and fluid filled stomach are seen. The biophysical profile is 8/8. Follow-up ======== Follow up ultrasound in 2 weeks to reassess EVERARDO with BPP/NST. Correlate polyhydramnios with maternal glucose screening. Weekly CBC/ Platelet counts are recommended at this gestational age. See separate visit note. Coding ====== Diagnoses Z36.3: Encounter for screening for malformations O99.113, D69.6: Other diseases of the blood and blood-forming organs and certain disorders involving the immune mechanism complicating , Alloimmune Thrombocytopenia D69.6: Thrombocytopenia, Unspecified Procedures 00341: [place] [address]: Biophysical Profile W/O NST [facility] AVI[facility] PACS Anatomical Region Laterality Modality Other 12/14/2024 11:1 7 AM CDT Ruslan Azevedo MD [facility] ORDERABLES Edited Result - Final documented in this encounter Visit Diagnoses Diagnosis 34 weeks gestation of (HCC)- Primary state, incidental Supervision of normal first in third trimester (HCC) Low platelet count Encounter for ultrasound to assess growth (HCC) Gestational thrombocytopenia without hemorrhage, third trimester (HCC) documented in this encounter
--- OUTSIDE RECORDS SUMMARY | 2024-12-14 13:47 | XMS_ITS | Encounter Summary ---
Author Organization [facility] Address [address] [place] [address] Care Team Providers Care Associate Editor Name Role Phone Unavailable Primary Care Provider Unavailabl e Encounter Details Date Type Department Care Team (Late st Contact Info) Description 12/02/2024 Results Follow-Up [facility] Maternal & Care [address] [place] [phone] Cindy Teague MD [address] [facility] [address] [place] [id number] Social History Tobacco Use Types Packs/Day Years [...] on file documented as of this encounter Plan of Treatment Upcoming Encounters Date Type Department Care Team (Late st Contact Info) Description 12/28/2024 9:45 AM CDT Appointment [facility] Maternal & Care [address] [place] [phone] documented as of this encounter Visit Diagnoses Not on filedocumented in this encounter
--- OUTSIDE RECORDS SUMMARY | 2024-12-14 13:47 | XMS_ITS | Clinical Summary ---
Author Organization [facility] Address [address] [place] [address] Care Team Providers Care Resort Keeper Name Role Phone Unavailable Primary Care Provider Unavailabl e Source Comments [facility],non-owned Affiliates and Associated Physician Practices is amultiple site organization consisting of ambulatory clinics and hospital sitesin [place], [place], [place] and [place]. This disclosure is being madepursuant to the Care Everywhere program and may not contain all information available regarding this patient. Last updated 18.[facility] [employer] Allergies No known active allergies Medications * Be aware that medications may not be up to date on this document. Alwaysverify current medications with the patient. Vit-DSS-Fe Fum-FA ( vitamin with iron) tabletIndicatio ns: Take 1 (one) tablet by mouth once daily Reasons: Active ferrous sulfate 325 (65 FE) MG tabletIndicatio ns:Iron Deficiency Anemia Take 1 (one) tablet by mouth once daily Reasons: Anemia From Inadequate Iron in the Body Active docusate sodium (Colace) 100 MG capsuleIndicati ons:Constipatio n Take 1 (one) capsule by mouth once daily Reasons: Constipation Active Active Problems Problem Noted Date Diagnosed Date Gestational thrombocytopenia without hemorrhage, third trimester 12/06/2024 Estimated Date of Delivery Comme nts Yes 01/09/2025 Based on last me nstrual period of 04/04/2024 Encounters Date Type Department Care Team Description 12/14/2024 10:30 AM CDT Hospital Encounter [facility] Women's Health Maternal & Care [address] [place] [address] [phone] Cindy Teague MD 12/02/2024 Results Follow-Up [facility] [address] [place] [phone] Cindy Teague MD 11/30/2024 10:55 AM CDT - 11/30/2024 11:59 PM CDT Hospital Encounter [facility] [address] [place] [phone] Cindy Teague MD Discharge Disposition: Home or Self Care 11/18/2024 10:24 AM CDT - 11/18/2024 11:59 PM CDT Hospital Encounter [facility] [address] [place] [phone] 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 Discharge Disposition: Home or Self Care 11/18/2024 Travel from Last 3 Months Family History Medical History Relation Name Comments Hypertension Father Relation Name Status Comments Father Social History Tobacco Use Types Packs/Day Years Used Date Smoking Tobacco: Never Smokeless Tobacco: Never Tobacco Cessation:Counseling Given: Not Answered Alcohol Use Standard Drinks/Week Comments Never 0 (1 standard drink = 0.6 oz pur e alcohol) Estimated Date of Delivery Comme nts Yes 01/09/2025 Based on last me nstrual period of 04/04/2024 Sex and Gender Information Value Date Recorded Sex Assigned at Not on file Legal Sex Female 11:20 AM CDT Gender Identity Not on file Sexual Orientation Not on file Last Filed Vital Signs Vital Sign Reading Time Taken Comments Blood Pressure 100/68 12/14/2024 10:49 AM CDT Pulse 94 12/14/2024 10:49 AM CDT Temperature - - Respiratory Rate - - Oxygen Saturation - - Inhaled Oxygen Concentration - - Weight 74 kg (163 lb 3.2 oz) 12/14/2024 10:49 AM CDT Height 157.5 cm (5' 2) 11/30/2024 11:08 AM CDT Body Mass Index 29.85 11/30/2024 11:08 AM CDT Plan of Treatment Upcoming Encounters Date Type Department Care Team (Late st Contact Info) Description 12/28/2024 9:45 AM CDT Appointment [facility] Women's Health Maternal & Care [address] [place], [place] [phone] Health Maintenance Due Date Last Done Comments [...] OB-GROUP B STREP SCREEN 12/05/2024 INFLUENZA VACCINE (#1) 2025 ZOSTER VACCINE (1 of 2) 01/20/2054 [...] 1:17 AM CDT 34 weeks gestation of (HCC) Supervision of normal first in third trimester (HCC) Low platelet count Encounter for ultrasound to assess growth ([facility]) TSH 11/30/2024 12:05 PM CDT T4 FREE 11/30/2024 12:05 PM CDT BETA-2 GLYCOPROTEIN 1 ANTIBODY IGG 11/30/2024 12:05 PM CDT BETA-2 GLYCOPROTEIN 1 ANTIBODY IGM 11/30/2024 12:05 PM CDT CARDIOLIPIN ANTIBODY IGG/IGM PANEL 11/30/2024 12:05 PM CDT NIKKI BLOOD SCREEN W/REFLEX TITER 11/30/2024 12:05 PM CDT CBC W AUTO DIFFERENTIAL 11/30/2024 12:05 PM CDT COMPREHENSIVE METABOLIC PANEL 11/30/2024 12:05 PM CDT LDH BLOOD 11/30/2024 12:05 PM CDT SONOGRAM - COMPLETE Routine 11/18/2024 1 0:55 AM CDT Encounter for ultrasound to assess growth (HCC) Encounter for anatomic survey (HCC) 32 weeks gestation of (HCC) from Last 3 Months Results * Sonogram - Complete (12/14/2024 11:17 AM CDT) Only the most recent of2 resultswithin the time period is included. Linked Results Indication ======== screening for malformation [...] 7 lb 5 oz EFW by Hadlock ([id number]) appropriate Growth Overview Exam date [place] BPD [...] Heart / Thorax 4-chamber view. 3-vessel view. 0-dunjos-ubzxjyo view. Interventricular septum. Diaphragm. Extremities / Skeleton Left arm. Left leg. sex: male. 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 [employer] PACS Anatomical Region Laterality Modality Other 12/14/2024 11:1 7 AM CDT Ruslan Azevedo MD [facility] ORDERABLES Edited Result - Final * BETA-2 GLYCOPROTEIN 1 ANTIBODY IGG (11/30/2024 12:05 PM CDT) Beta-2 Glycoprotein I Antibody IgG <2.0 U/mL [facility] Comment: Value Interpretation ----- < 20.0 Antibody not detected > or = 20.0 Antibody detected The antiphospholipid antibody syndrome (APS) is a clinical-pathologic correlation that includes a clinical event (e.g. arterial or venous thrombosis, morbidity) and persistent positive antiphospholipid antibodies (IgM, IgG Cardiolipin or b2GPI antibodies greater than the 99th percentile; or a lupus anticoagulant). International consensus guidelines for APS suggest waiting at least 12 weeks before retesting to confirm antibody persistence. The [facility] immunological classification criteria for systemic lupus erythematosus (SLE) include testing for isotype IgA, which has yet to be incorporated into APS criteria. Low level antiphospholipid antibodies may sometimes be detected in the setting of infection, drug therapy or aging. For additional information, please refer to http://education.Uversity/faq/BOP247 (This link is being provided for informational/ educational purposes only.) Test Performed at: [facility] [address] [address] ABEBA ZAMORA 11/30/2024 12:0 5 PM CDT 11/30/2024 12:08 PM CDT Cindy Teague MD LAB - SEROLOGY ORDERABLES Final Result Performing Organization Address City/State/[facility] [[email or web address]] Co de Phone Number [facility] [address] [place] [address] * BETA-2 GLYCOPROTEIN 1 ANTIBODY IGM (11/30/2024 12:05 PM CDT) [facility] Beta-2 Glycoprotein I Antibody IgM <2.0 U/mL [facility] Comment: Value Interpretation ----- < 20.0 Antibody not detected > or = 20.0 Antibody detected The antiphospholipid antibody syndrome (APS) is a clinical-pathologic correlation that includes a clinical event (e.g. arterial or venous thrombosis, morbidity) and persistent positive antiphospholipid antibodies (IgM, IgG Cardiolipin or b2GPI antibodies greater than the 99th percentile; or a lupus anticoagulant). International consensus guidelines for APS suggest waiting at least 12 weeks before retesting to confirm antibody persistence. The [facility] immunological classification criteria for systemic lupus erythematosus (SLE) include testing for isotype IgA, which has yet to be incorporated into APS criteria. Low level antiphospholipid antibodies may sometimes be detected in the setting of infection, drug therapy or aging. For additional information, please refer to http://Minggl.Uversity/faq/NCG452 (This link is being provided for informational/ educational purposes only.) Test Performed at: [facility] [place] [address] [place] [address] ABEBA [place] ZAMORA 11/30/2024 12:0 5 PM CDT 11/30/2024 12:08 PM CDT us Cindy Teague MD LAB - SEROLOGY ORDERABLES Final Result [facility] [address] [place] [address] * CARDIOLIPIN ANTIBODY IGG/IGM PANEL (11/30/2024 12:05 PM CDT) Pathologist [facility] Cardiolipin Antibody IgG <2.0 GPL-U/mL [facility] Comment: Value Interpretation ----- < 20.0 Antibody not detected > or = 20.0 Antibody detected Cardiolipin Antibody IgM <2.0 MPL-U/mL [facility] Comment: Value Interpretation ----- < 20.0 Antibody not detected > or = 20.0 Antibody detected The antiphospholipid antibody syndrome (APS) is a clinical-pathologic correlation that includes a clinical event (e.g. arterial or venous thrombosis, morbidity) and persistent positive antiphospholipid antibodies (IgM, IgG Cardiolipin or b2GPI antibodies greater than the 99th percentile; or a lupus anticoagulant). International consensus guidelines for APS suggest waiting at least 12 weeks before retesting to confirm antibody persistence. The [facility] Lup[facility] International [facility] immunological classification criteria for systemic lupus erythematosus (SLE) include testing for isotype IgA, which has yet to be incorporated into APS criteria. Low level antiphospholipid antibodies may sometimes be detected in the setting of infection, drug therapy or aging. For additional information, please refer to http://education.Uversity/faq/HXX181 (This link is being provided for informational/ educational purposes only.) Test Performed at: [facility] [address] [place] [address] ABEBA [place] SERA 11/30/2024 12:0 5 PM CDT 11/30/2024 12:08 PM CDT Cindy Teague MD LAB - SEROLOGY ORDERABLES Final Result Performing Organization Address [facility] de Phone Number [facility] [phone] [place] [address] * NIKKI BLOOD SCREEN W/REFLEX TITER (11/30/2024 12:05 PM CDT) Pathologist [facility] NIKKI Screen NEGATIVE NEGATIVE [facility] Comment: NIKKI IFA is a first line screen for detecting the presence of up to approximately 150 autoantibodies in various autoimmune diseases. A negative NIKKI IFA result suggests an NIKKI-associated autoimmune disease is not present at this time, but is not definitive. If there is high clinical suspicion for Sjogren's syndrome, testing for anti-SS-A/Ro antibody should be considered. Anti-Gisela-1 antibody should be considered for clinically suspected inflammatory myopathies. AC-0: Negative International Consensus on NIKKI Patterns (https://doi.org/10.1515/asmi-0528-2453) For additional information, please refer to http://education.HiveLive.Polyview Media/faq/CJQ824 (This link is being provided for informational/ educational purposes only.) Test Performed at: [facility] [address] [place] [address] ZARA ASHLEY MD 11/30/2024 12:0 5 PM CDT 11/30/2024 12:08 PM CDT Cindy Teague MD LAB - CHEMISTRY ORDERABLES Shazia l Result Performing Organization Address [facility] [[email or web address]] Co de Phone Number [facility] [address] [place] [address] * (ABNORMAL) CBC W AUTO DIFFERENTIAL (11/30/2024 12:05 PM CDT) White Blood Cell Count 9.1 3.8 - 10.8 Thousand/ uL [facility] RBC 3.82 3.80 - 5.10 Million/u L [facility] Hemoglobin 10.9(L) 11.7 - 15.5 g/dL [facility] Hematocrit 34.2(L) 35.0 - 45.0 % [facility] MCV 89.5 80.0 - 100.0 fL [facility] MCH 28.5 27.0 - 33.0 pg [facility] MCHC 31.9(L) 32.0 - 36.0 g/dL [facility] Comment: For adults, a slight decrease in the calculated MCHC value (in the range of 30 to 32 g/dL) is most likely not clinically significant; however, it should be interpreted with caution in correlation with other red cell parameters and the patient's clinical condition. RDW 14.2 11.0 - 15.0 % [facility] Platelet Count 125(L) 140 - 400 Thousand/ uL [facility] MPV 13.8(H) 7.5 - 12.5 fL [facility] Neutrophil Absolute 6725 1500 - 7800 cells/uL [facility] Absolute Bands [facility] Metamyelocytes Absolute [facility] Myelocytes Absolute [facility] Absolute Prolymphocytes [facility] Lymphocytes Absolute 1583 850 - 3900 cells/uL [facility] Absolute Monocytes 692 200 - 950 cells/uL [facility] Eosinophils Absolute 73 15 - 500 cells/uL [facility] Basophils Absolute 27 0 - 200 cells/uL [facility] Absolute Blasts [facility] nRBC Absolute [facility] Granulocytes % 73.9 % [facility] Band Neutrophil [facility] Metamyelocytes [facility] Myelocytes [facility] Promyelocytes [facility] Lymphocytes % 17.4 % [facility] Lymphocyte Reactive [facility] Monocytes % 7.6 % [facility] Eosinophils % 0.8 % [facility] Basophils % 0.3 % [facility] Blasts [facility] nRBC [facility] Comments [facility] Comment: Review of peripheral smear confirms automated results. Test Performed at: [facility] [address] ZARA ASHLEY MD 11/30/2024 12:0 5 PM CDT 11/30/2024 12:08 PM CDT Cindy Teague MD LAB - HEMATOLOGY ORDERABLES Fin al Result [facility] [address] [place] [address] * (ABNORMAL) COMPREHENSIVE METABOLIC PANEL (11/30/2024 12:05 PM CDT) [facility] Glucose 83 65 - 99 mg/dL [facility] Comment: Fasting reference interval BUN 5(L) 7 - 25 mg/dL [facility] Creatinine 0.35(L) 0.50 - 0.96 mg/dL [facility] eGFR by Cystatin C 150 > OR = 60 mL/min/1.7 3m2 [facility] BUN/Creatinine Ratio 14 6 - 22 (calc) [facility] Sodium 135 135 - 146 mmol/L [facility] Potassium 4.0 3.5 - 5.3 mmol/L [facility] Chloride 104 98 - 110 mmol/L [facility] CO2 23 20 - 32 mmol/L [facility] Calcium 8.7 8.6 - 10.2 mg/dL [facility] Protein Total 6.0(L) 6.1 - 8.1 g/dL [facility] Albumin 3.5(L) 3.6 - 5.1 g/dL [facility] Globulin Total 2.5 1.9 - 3.7 g/dL (calc) [facility] Albumin/Globulin Ratio 1.4 1.0 - 2.5 (calc) [facility] Bilirubin Total 0.4 0.2 - 1.2 mg/dL [facility] Alkaline Phosphatase 139(H) 31 - 125 U/L [facility] AST 21 10 - 30 U/L [facility] ALT 22 6 - 29 U/L [facility] Comment: Test Performed at: [place] [address] ZARA ASHLEY MD 11/30/2024 12:0 5 PM CDT 11/30/2024 12:08 PM CDT Cindy Teague MD LAB - CHEMISTRY ORDERABLES Shazia l Result [facility] [address] [place] [address] * LDH BLOOD (11/30/2024 12:05 PM CDT) [facility] LD-Total 149 100 - 200 U/L [facility] Comment: Test Performed at: [facility] [place] [address] ZARA ASHLEY MD 11/30/2024 12:0 5 PM CDT 11/30/2024 12:08 PM CDT Cindy Teague MD LAB - CHEMISTRY ORDERABLES Shazia l Result Performing Organization Address [facility] de Phone Number [facility] [phone] [place] [address] * TSH (11/30/2024 12:05 PM CDT) TSH 1.91 mIU/L [facility] Comment: Reference Range > or = 20 Years 0.40-4.50 Ranges First trimester 0.26-2.66 Second trimester 0.55-2.73 Third trimester 0.43-2.91 Test Performed at: [employer] [facility] [place] [address] ZARA ASHLEY MD 11/30/2024 12:0 5 PM CDT 11/30/2024 12:08 PM CDT Cindy Teague MD LAB - CHEMISTRY ORDERABLES Shazia l Result Performing Organization Address [facility] de Phone Number [place] [phone] * T4 FREE (11/30/2024 12:05 PM CDT) T4 Free 0.8 0.8 - 1.4 ng/dL [facility] Comment: Test Performed at: [employer] [address] ZARA ASLHEY MD 11/30/2024 12:0 5 PM CDT 11/30/2024 12:08 PM CDT Cindy Teague MD LAB - CHEMISTRY ORDERABLES Shazia l Result Performing Organization Address [facility] [place] [address] from Last 3 Months Insurance [facility]
== END 2024-12-14 12:37 | disposition home or self-care (01) ==
PROVIDERS: Visit Provider Obstetrics & Gynecology
DX: O42.90 Premature rupture of membranes, unspecified as to length of time between rupture and onset of labor, unspecified weeks of gestation (principal); Z3A.00 Weeks of gestation of pregnancy not specified
CPT/HCPCS: 59025; 84112

== ENCOUNTER 2024-12-14 16:01 | Outpatient (CLI) | payer OTHER, SELFPAY ==
--- OUTSIDE RECORDS SUMMARY | 2024-12-14 16:09 | XMS_ITS | Encounter Summary ---
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 Name Role Phone Unavailable Primary Care Provider Unavailabl e Encounter Details Date Type Department Care Team (Late st Contact Info) Description 12/02/2024 Results Follow-Up Counts include 234 beds at the [facility] Maternal & Care [address] [place] [address] Cindy Teague MD [address] [facility] [address] [place] [id number] Social History Tobacco Use Types Packs/Day Years [...] Info) Description 12/28/2024 9:45 AM CDT Appointment Counts include 234 beds at the [facility] Maternal & Care [address] [place] [address] documented as of this encounter Visit Diagnoses Not on filedocumented in this encounter
--- OUTSIDE RECORDS SUMMARY | 2024-12-14 16:09 | XMS_ITS | Encounter Summary ---
Author Organization [facility] Address [address] [place] [address] Care Team Providers Care Esol Teacher Assistant Name Role Phone Unavailable Primary Care Provider Unavailabl e Reason for Referral * (Routine) - Open Specialty Diagnoses / Procedures Referred By Contac t Referred To Contact Diagnoses 34 weeks gestation of (HCC) Supervision of normal first in third trimester (HCC) Low platelet count Encounter for ultrasound to assess growth (HCC) Procedures Sonogram - Complete Ruslan Thomas MD [address] [place] [address] Phone: tel: fax: Referral ID Status Reason Start Date Expiration Date Visits Re quested Visits Authorized [id number] Open 12/05/2024 12/05/2025 1 1 * (Routine) - Open Specialty Diagnoses / Procedures Referred By Contac t Referred To Contact Diagnoses 34 weeks gestation of (HCC) Supervision of normal first in third trimester (HCC) Low platelet count Encounter for ultrasound to assess growth (HCC) Procedures Sonogram - Complete Ruslan Thomas MD [address] [facility] [address] [address] Phone: tel: fax: Referral ID Status Reason Start Date Expiration Date Visits Re quested Visits Authorized [id number] Open 12/05/2024 12/05/2025 1 1 Reason for Visit * Reason Comments Ultrasound Maternal Medicine Follow-up * Evaluate & Treat (Routine) - Authorized Specialty Diagnoses / Procedures Referred By Contac t Referred To Contact Maternal Medicine Diagnoses Low weight gain in , unspecified trimester (HCC) Thrombocytopenia affecting (HCC) Procedures TX FULL ROUT OBSTE CARE,VAGINAL DELIV Ruslan Thomas MD [address] [facility] [address] [place] [address] Phone: tel: fax: [facility] & [facility] [address] [place] [address] Phone: tel: fax: Referral ID Status Reason Start Date Expiration Date V isits Requested Visits Authorized [id number] Authorized 11/14/2024 03/12/2025 18 18 Encounter Details Date Type Department Care Team (Late st Contact Info) Description 12/14/2024 10:30 AM CDT Hospital Encounter [facility] Maternal & Care [address] [place], [place] [phone] Cindy Teague MD [address] [facility] [address] [place] [address] Social History Tobacco Use Types [...] this encounter Progress Notes * Calista Alegre, GROUND OPERATIONS SUPERINTENDENT-CERTIFIED DRUG COUNSELOR - 12/14/2024 11:00 AM CDT [facility] follow up visit Keith Rosenberg [...] permissible level at her planned delivery hospital ([facility]) (generally 80-100), we will plan a course of oral steroids, to attempt to increase the platelet count. At times, a dose of IV steroids close to delivery may be considered. 4. We reviewed kick counts (BID), as well as PTL and preeclampsia signs and symptoms. 5. 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 Keep all appointments with primary OB [...] me directly, or contact one of the [facility] physicians. LG Celeste 12/14/2024 11:00 AM * [...] more. Patient has preregistration appt today with [facility] and with Dr. Ingram. Patient Vitals for the past 6 hrs: Pulse BP 12/14/24 1049 94 100/68 Samantha Vásquez RN 12/14/2024 10:59 AM documented in this encounter Plan of Treatment Upcoming Encounters Date Type Department Care Team (Late st Contact Info) Description 12/28/2024 9:45 AM CDT Appointment [facility] Maternal & Care [address] [place] [id number] Scheduled Orders Name Type Priority Associated Diagnoses Orde r Schedule CBC WITH DIFFERENTIAL Lab Routine Gestational thrombocytopenia without hemorrhage, third trimester ([facility]) 1 Occurrences starting 12/14/2024 until 12/09/2025 documented as of this encounter Procedures Procedure Name Priority Date/Time Associated Diagnosis Comments SONOGRAM - COMPLETE Routine 12/14/2024 1 1:17 AM CDT 34 weeks gestation of ([facility]) Supervision of normal first in third trimester ([facility]) Low platelet count Encounter for ultrasound to assess growth ([facility]) documented in this encounter Results * Sonogram [...] 7 lb 5 oz EFW by Hadlock ([id number]) appropriate Growth Overview Exam date [place] BPD [...] Heart / Thorax 4-chamber view. 3-vessel view. 6-lkxyhz-hgskqfn view. Interventricular septum. Diaphragm. 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, Unspecified Procedures 43108: [place] [address]: Biophysical Profile W/O NST Y [facility] [employer] PACS Anatomical Region Laterality Modality Other 12/14/2024 11:1 7 AM CDT Ruslan Azevedo MD [facility] ORDERABLES Edited Result - Final documented in this encounter Visit Diagnoses Diagnosis 34 weeks gestation of (HCC)- Primary state, incidental Supervision of normal first in third trimester (HCC) Low platelet count Encounter for ultrasound to assess growth (HCC) Gestational thrombocytopenia without hemorrhage, third trimester (HCC) documented in this encounter
--- OUTSIDE RECORDS SUMMARY | 2024-12-14 16:09 | XMS_ITS | Clinical Summary ---
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
--- OUTSIDE RECORDS SUMMARY | 2024-12-14 16:09 | XMS_ITS | Clinical Summary ---
Author Organization [facility] Address [address] [place] [address] Care Team Providers Care Distributor Of Directories Name Role Phone Unavailable Primary Care Provider Unavailabl e Source Comments [facility],non-owned Affiliates and Associated Physician Practices is amultiple site organization consisting of ambulatory clinics and hospital sitesin [place], [place], [place] and [place]. This disclosure is being madepursuant to the Care Everywhere program and may not contain all information available regarding this patient. Last updated 18.[facility] Allergies No known active allergies Medications * [...] Description 12/14/2024 10:30 AM CDT Hospital Encounter [facility] Women's Health Maternal & Care [address] [place] [address] [phone] Cindy Teague MD 12/02/2024 Results Follow-Up [facility] Maternal & Care [address] [place] [phone] Cindy Teague MD 11/30/2024 10:55 AM CDT - 11/30/2024 11:59 PM CDT Hospital Encounter [facility] Maternal & Care [address] [place] [phone] Cindy Teageu MD Discharge Disposition: Home or Self Care 11/18/2024 10:24 AM CDT - 11/18/2024 11:59 PM CDT Hospital Encounter [facility] Maternal & Care [address] [place] [address] [phone] Josue Smith MD 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 Women's Health Maternal & Care [address] [place], [place] [phone] Health Maintenance Due Date Last Done Comments [...] Encounter for ultrasound to assess growth ([facility]) TSH 11/30/2024 12:05 PM CDT [...] 7 lb 5 oz EFW by Hadlock ([id number]) appropriate Growth Overview Exam date [place] BPD [...] Heart / Thorax 4-chamber view. 3-vessel view. 8-hkdcty-yytyqcm view. Interventricular septum. Diaphragm. 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 For additional information, please refer to http://education.F2G/faq/IOB312 (This link is being provided for informational/ educational purposes only.) Test Performed at: [facility] [address] [address] ABEBA ZAMORA 11/30/2024 12:0 5 PM CDT 11/30/2024 12:08 PM CDT Cindy Teague MD LAB - SEROLOGY ORDERABLES Final Result Performing Organization Address City/State/[facility] Co de Phone Number [employer] [address] [place] [address] * BETA-2 GLYCOPROTEIN 1 ANTIBODY IGM (11/30/2024 12:05 PM CDT) [facility] Beta-2 Glycoprotein I Antibody IgM <2.0 U/mL [employer] Comment: Value Interpretation ----- < 20.0 Antibody [...] aging. For additional information, please refer to http://Edtrips.F2G/faq/INK642 (This link is being provided for informational/ educational purposes only.) Test Performed at: [facility] [place] [address] [place] [address] ABEBA [place] ZAMORA 11/30/2024 12:0 5 PM CDT 11/30/2024 12:08 PM CDT us Cindy Teague MD LAB - SEROLOGY ORDERABLES Final Result [employer] [address] [place] [address] * CARDIOLIPIN ANTIBODY IGG/IGM PANEL (11/30/2024 12:05 PM CDT) Pathologist [facility] Cardiolipin Antibody IgG <2.0 GPL-U/mL [employer] Comment: Value Interpretation ----- < 20.0 Antibody not detected > or = 20.0 Antibody detected Cardiolipin Antibody IgM <2.0 MPL-U/mL [employer] Comment: Value Interpretation ----- < 20.0 Antibody [...] aging. For additional information, please refer to http://education.F2G/faq/TQE639 (This link is being provided for informational/ educational purposes only.) Test Performed at: [facility] [address] [address] [place] [address] ABEBA [place] SERA 11/30/2024 12:0 5 PM CDT 11/30/2024 12:08 PM CDT Cindy Teague MD LAB - SEROLOGY ORDERABLES Final Result Performing Organization Address [facility] de Phone Number [facility] [phone] [place] [address] * NIKKI BLOOD SCREEN W/REFLEX TITER (11/30/2024 12:05 PM CDT) Pathologist [facility] NIKKI Screen NEGATIVE NEGATIVE [facility] Comment: NIKKI [...] AC-0: Negative International Consensus on NIKKI Patterns (https://doi.org/10.1515/eghs-4088-5868) For additional information, please refer to http://education.United Dogs and Cats.[facility] [facility]/faq/LGV311 (This link is being provided for informational/ educational purposes only.) Test Performed at: [facility] [place] [address] [place] [address] ZARA ASHLEY MD 11/30/2024 12:0 5 PM CDT 11/30/2024 12:08 PM CDT Cindy Teague MD LAB - CHEMISTRY ORDERABLES Shazia l Result Performing Organization Address [facility] Co de Phone Number [facility] [address] [place] [address] * (ABNORMAL) CBC W AUTO DIFFERENTIAL (11/30/2024 [...] smear confirms automated results. Test Performed at: [facility] [address] ZARA ASHLEY MD 11/30/2024 12:0 5 PM CDT 11/30/2024 12:08 PM CDT Cindy Teague MD LAB - HEMATOLOGY ORDERABLES Fin al Result [facility] [address] [place] [address] * (ABNORMAL) COMPREHENSIVE METABOLIC PANEL (11/30/2024 12:05 PM CDT) [facility] Glucose 83 65 - 99 mg/dL [facility] [...] 29 U/L [facility] Comment: Test Performed at: [place] [address] ZARA ASHLEY MD 11/30/2024 12:0 5 PM CDT 11/30/2024 12:08 PM CDT Cindy Teague MD LAB - CHEMISTRY ORDERABLES Shazia l Result [facility] [address] [place] [address] * LDH BLOOD (11/30/2024 12:05 PM CDT) [facility] LD-Total 149 100 - 200 U/L [facility] Comment: Test Performed at: [facility] [place] [address] ZARA ASHLEY MD 11/30/2024 12:0 5 PM CDT 11/30/2024 12:08 PM CDT iCndy Teague MD LAB - CHEMISTRY ORDERABLES Shazia l Result Performing Organization Address [facility] de Phone Number [facility] [phone] [place] [address] * TSH (11/30/2024 12:05 PM CDT) TSH 1.91 mIU/L [facility] Comment: Reference Range > or = 20 Years 0.40-4.50 Ranges First trimester 0.26-2.66 Second trimester 0.55-2.73 Third trimester 0.43-2.91 Test Performed at: [facility] [address] ZARA ASHLEY MD 11/30/2024 12:0 5 PM CDT 11/30/2024 12:08 PM CDT Cindy Teague MD LAB - CHEMISTRY ORDERABLES Shazia l Result Performing Organization Address [facility] de Phone Number [place] [phone] * T4 FREE (11/30/2024 12:05 PM CDT) T4 Free 0.8 0.8 - 1.4 ng/dL [facility] Comment: Test Performed at: [employer] [address] ZARA ASHLEY MD 11/30/2024 12:0 5 PM CDT 11/30/2024 12:08 PM CDT Cindy Teague MD LAB - CHEMISTRY ORDERABLES Shazia l Result Performing Organization Address [facility] [place] [address] from Last 3 Months Insurance [facility]
[2024-12-14 16:20] LABS: Hematocrit 36.1 % (37.0-47.0); Hemoglobin 11.4 g/dL (12.0-15.0); Immature Granulocyte Percent A 0.6 % (0-0.5); Lymphocytes Absolute Auto 1.72 K/mm3 (0.9-3.2); Mean Corpuscular HGB Conc 31.6 g/dl (32-36); Mean Corpuscular Hemoglobin 27.0 pg (26-34); Mean Corpuscular Volume 85.5 fl (80-100); Nucleated Red Blood Cells Absolute Auto 0.000 K/mm3 (0.0-0.012); Nucleated Red Blood Cells Perc 0.0 % (0.0-0.2); Platelet Count Result 116 k/mm3 (150-375); Red Blood Count 4.22 M/mm3 (4.2-5.4); White Blood Count 10.1 K/mm3 (4.5-10.0)
== END 2024-12-14 16:02 | disposition home or self-care (01) ==
PROVIDERS: PCP Obstetrics & Gynecology
DX: O99.113 Other diseases of the blood and blood-forming organs and certain disorders involving the immune mechanism complicating pregnancy, third trimester (principal); D69.6 Thrombocytopenia, unspecified; Z3A.00 Weeks of gestation of pregnancy not specified
CPT/HCPCS: 36415; 85025

== ENCOUNTER 2024-12-18 09:01 | Inpatient (IN) | payer OTHER, SELFPAY ==
[2024-12-18] VITALS (27 sets, daily range): BP systolic 88–115; BP diastolic 38–77; PULSE 70–97; TEMP 36.6–37; BMI 29.0
--- OUTSIDE RECORDS SUMMARY | 2024-12-18 09:23 | XMS_ITS | Encounter Summary ---
Author Organization [facility] Address [address] [address] Care Team Providers Care Crib Clerk Name Role Phone Unavailable Primary Care Provider Unavailabl e Encounter Details Date Type Department Care Team (Late st Contact Info) Description 12/02/2024 Results Follow-Up [facility] Maternal & Care [address] [place] [phone] Cindy Teague MD [address] [facility] [address] [place] [id number] Social History Tobacco Use Types Packs/Day Years [...] Info) Description 12/28/2024 9:45 AM CDT Appointment [facility] Maternal & Care [address] [place] [phone] documented as of this encounter Visit Diagnoses Not on filedocumented in this encounter
--- OUTSIDE RECORDS SUMMARY | 2024-12-18 09:23 | XMS_ITS | Clinical Summary ---
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
--- OUTSIDE RECORDS SUMMARY | 2024-12-18 09:23 | XMS_ITS | Clinical Summary ---
Author Organization [facility] Address [address] [place] [address] Care Team Providers Care Compound Machine Operator Name Role Phone Unavailable Primary Care Provider Unavailabl e Source Comments [facility],non-owned Affiliates and Associated Physician Practices is amultiple site organization consisting of ambulatory clinics and hospital sitesin [place], [place], [place] and [place]. This disclosure is being madepursuant to the Care Everywhere program and may not contain all information available regarding this patient. Last updated 18.[facility] Allergies No known active allergies Medications * [...] Care Team Description 12/14/2024 10:30 AM CDT - 12/14/2024 11:59 PM CDT Hospital Encounter [facility] Women's Health Maternal & Care [address] [place] [phone] Cindy Teague MD Discharge Disposition: Home or Self Care 12/02/2024 Results Follow-Up [facility] Maternal & Care [address] [place] [phone] Cindy Teague MD 11/30/2024 10:55 AM CDT - 11/30/2024 11:59 PM CDT Hospital Encounter [facility] Maternal & Care [address] [place] [phone] Cindy Teague MD Discharge Disposition: Home or Self Care 11/18/2024 10:24 AM CDT - 11/18/2024 11:59 PM CDT Hospital Encounter [facility] Maternal & Care [address] [place] [phone] Josue Smith MD 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 3-vessel view. 6-yvpchh-jjlsrgj view. Interventricular septum. Diaphragm. 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 For additional information, please refer to http://education.AirT[employer]/faq/DMY255 (This link is being provided for informational/ educational purposes only.) Test Performed at: [facility] [address] [address] ABEBA ZAMORA 11/30/2024 12:0 5 PM CDT 11/30/2024 12:08 PM CDT Cindy Teague MD LAB - SEROLOGY ORDERABLES Final Result Performing Organization Address City/State/[facility] Co de Phone Number [facility] [address] [place] [address] * BETA-2 GLYCOPROTEIN 1 ANTIBODY IGM (11/30/2024 12:05 PM CDT) [facility] Beta-2 Glycoprotein I Antibody IgM <2.0 U/mL [facility] Comment: Value Interpretation ----- < 20.0 Antibody [...] aging. For additional information, please refer to http://education.[employer]/faq/CNE182 (This link is being provided for informational/ educational purposes only.) Test Performed at: [facility] [address] [address] ABEBA [place] ZAMORA 11/30/2024 12:0 5 PM CDT 11/30/2024 12:08 PM CDT Cindy Teague MD LAB - SEROLOGY ORDERABLES Final Result Performing Organization Address City/State/[facility] Co de Phone Number [facility] [address] [place] [address] * CARDIOLIPIN ANTIBODY IGG/IGM PANEL (11/30/2024 12:05 PM CDT) Pathologist [facility] Cardiolipin Antibody IgG <2.0 GPL-U/mL [facility] Comment: Value Interpretation ----- < 20.0 Antibody not detected > or = 20.0 Antibody detected Cardiolipin Antibody IgM <2.0 MPL-U/mL [facility] Comment: Value Interpretation ----- < 20.0 Antibody [...] aging. For additional information, please refer to http://Patron Technology.[employer]/faq/NWY972 (This link is being provided for informational/ educational purposes only.) Test Performed at: [facility] [address] [place] [address] ABEBA ZAMORA 11/30/2024 12:0 5 PM CDT 11/30/2024 12:08 PM CDT Cindy Teauge MD LAB - SEROLOGY ORDERABLES Final Result Performing Organization Address [facility] de Phone Number [facility] [phone] [place] [address] * NIKKI BLOOD SCREEN W/REFLEX TITER (11/30/2024 12:05 PM CDT) NIKKI Screen NEGATIVE NEGATIVE [facility] Comment: NIKKI [...] AC-0: Negative International Consensus on NIKKI Patterns (https://doi.org/10.1515/vifq-7049-3647) For additional information, please refer to http://Patron Technology.[employer]/faq/DVC579 (This link is being provided for informational/ educational purposes only.) Test Performed at: [facility] [place] [address] [place] [address] ZARA ASHLEY MD 11/30/2024 12:0 5 PM CDT 11/30/2024 12:08 PM CDT Cindy Teague MD LAB - CHEMISTRY ORDERABLES Shazia l Result Performing Organization Address [facility] Co de Phone Number [facility] [address] [place] [address] * (ABNORMAL) CBC W AUTO DIFFERENTIAL (11/30/2024 12:05 PM CDT) Pathologist [facility] White Blood Cell Count 9.1 3.8 - [...] smear confirms automated results. Test Performed at: [facility] [address] [place] [address] ZARA ASHLEY MD 11/30/2024 12:0 5 PM CDT 11/30/2024 12:08 PM CDT Cindy Teague MD LAB - HEMATOLOGY ORDERABLES Fin al Result [facility] [address] [place] [address] * (ABNORMAL) COMPREHENSIVE METABOLIC PANEL (11/30/2024 12:05 PM CDT) [facility] Glucose 83 65 - 99 mg/dL [facility] [...] 29 U/L [facility] Comment: Test Performed at: [place] [address] ZARA ASHLEY MD 11/30/2024 12:0 5 PM CDT 11/30/2024 12:08 PM CDT Cindy Teague MD LAB - CHEMISTRY ORDERABLES Shazia l Result [facility] [address] [place] [address] * LDH BLOOD (11/30/2024 12:05 PM CDT) [facility] LD-Total 149 100 - 200 U/L [facility] Comment: Test Performed at: [facility] [address] [facility] [address] ZARA ASHLEY MD 11/30/2024 12:0 5 PM CDT 11/30/2024 12:08 PM CDT Cindy Teague MD LAB - CHEMISTRY ORDERABLES Shazia l Result Performing Organization Address [facility] Co de Phone Number [facility] [address] [place] [phone] * TSH (11/30/2024 12:05 PM CDT) TSH 1.91 mIU/L [facility] Comment: Reference Range > or = 20 Years 0.40-4.50 Ranges First trimester 0.26-2.66 Second trimester 0.55-2.73 Third trimester 0.43-2.91 Test Performed at: [place] [address] ZARA ASHLEY MD 11/30/2024 12:0 5 PM CDT 11/30/2024 12:08 PM CDT us Cindy Teague MD LAB - CHEMISTRY ORDERABLES Shazia l Result Performing Organization Address [facility] de Phone Number [facility] [phone] [place] [address] * T4 FREE (11/30/2024 12:05 PM CDT) Pathologist [facility] T4 Free 0.8 0.8 - 1.4 ng/dL [facility] Comment: Test Performed at: [facility] [place] [address] ZARA ASHLEY MD 11/30/2024 12:0 5 PM CDT 11/30/2024 12:08 PM CDT us Cindy Teague MD LAB - CHEMISTRY ORDERABLES Shazia l Result Performing Organization Address [facility] Co de Phone Number [facility] [address] [place] [address] from Last 3 Months Insurance [facility]
[2024-12-18 09:47] LABS: OBXCEM ROM Plus Positive (Negative)
--- NOTE | 2024-12-18 09:50 | P.HP_ITS ---
H&P: HPI History of Present Illness Date/Time: 12/18/24 09:50 Chief Complaint: leakage of fluid Narrative: Keith is a 19yo @ 37.0wks who presented to L&D with leakage of clear fluid this morning. She has noticed some decreased movement at well. Having some contractions. no vaginal bleeding Her is complicated by: - Thrombocytopenia- initial plt 111 --> 116 - Mild polyhydramnios - Borderline LGA Review of Systems Constitutional: Constitutional: Denies chills, Denies fever(s) and Denies headache(s) Eyes: Eyes: Denies change in vision ENT: Denies headache(s) Cardiovascular: Cardiovascular: Denies chest pain and Denies dyspnea Respiratory: Respiratory: Denies dyspnea Genitourinary: Genitourinary: Denies abnormal vaginal bleeding and Denies vaginal discharge Neurologic: Denies headache(s) Psychiatric: Psychiatric: Denies anxiety and Denies depression PMFSH Family History Family History Father Hypertension Social History Social History Smoking status: Never smoker Alcohol intake: never Substance use: never Substance use type: does not use Spiritual care concerns: No Meds Home Medications and Allergies Home Medications ?Medication ?Instructions ?Recorded ?Confirmed ?Type docosahexaenoic acid 200 mg mg PO 07/26/24 12/07/24 History capsule ( DHA) ferrous sulfate 27 mg iron tablet 27 mg PO DAILY 10/24/24 12/14/24 History docusate sodium 100 mg capsule 100 mg PO DAILY 11/09/24 12/14/24 History (Stool Softener) RSVPreF3 antigen-AS01E 0.5 ml IM ONCE #1 ea 12/07/24 12/14/24 Rx adjuvant(PF) 120 mcg/0.5 mL IM suspension, kit vitamin#30 30 mg iron-10 1 cap PO DAILY #90 caps 12/07/24 12/14/24 Rx mg iron-folic acid 1 mg-omg3 capsule Allergies Allergy/AdvReac Type Severity Reaction Status Date / Time No Known Allergies Allergy Verified 12/14/24 14:45 Vital Signs Vital Signs - 24 hr 12/18/24 09:17 12/18/24 09:31 12/18/24 09:45 Temperature 97.8 F Pulse Rate 94 84 Blood Pressure 106/50 L 110/75 Exam Const: General: cooperative, healthy appearing, comfortable and no acute distress Orientation/consciousness: patient oriented x3 Resp: Effort & Inspection: normal respiratory effort Cardio: Rate: regular rate GI: GI Palp: No abdominal tenderness : Other: FHT's: 140's/ mod aroldo/ + accels/ no decels - cat 1 TOCO: irregular ctxs Cervix: 1/thick/high Membranes: intact Presentation: cephalic confirmed on bedside US Skin: General skin exam: normal color Neuro: General: patient oriented x3 Extrem: General: normal to inspection Psych: Appearance: grossly normal Affect: normal affect Attitude: cooperative Assessment and Plan Assessment and plan (1) Spontaneous rupture of amniotic membranes: Status: Acute Plan - Admitted for augmentation after SROM at term; risks and benefits discussed - Low dose pitocin per protocol - cephalic confirmed on bedside US - Continuous monitoring - GBS neg - Anesthesia consult PRN pain
[2024-12-18 10:13] LABS: Hematocrit 36.4 % (37.0-47.0); Hemoglobin 11.5 g/dL (12.0-15.0); Immature Granulocyte Percent A 0.4 % (0-0.5); Immature Platelet Fraction Pct 12.7 % (0.9-11.2); Lymphocytes Absolute Auto 1.68 K/mm3 (0.9-3.2); Mean Corpuscular HGB Conc 31.6 g/dl (32-36); Mean Corpuscular Hemoglobin 26.9 pg (26-34); Mean Corpuscular Volume 85.2 fl (80-100); Nucleated Red Blood Cells Absolute Auto 0.000 K/mm3 (0.0-0.012); Nucleated Red Blood Cells Perc 0.0 % (0.0-0.2); Platelet Count Result 114 k/mm3 (150-375); Red Blood Count 4.27 M/mm3 (4.2-5.4); White Blood Count 8.9 K/mm3 (4.5-10.0)
[2024-12-18] MEDS: OXYTOCIN 30 UNITS/NS 500 ML 30 UNITS/500 ML BAG IV CONT (10:18)
[2024-12-18] MEDS: LACTATED RINGERS 1,000 ML 125 ML IV CONT ×2 (10:19→15:16)
--- NOTE | 2024-12-18 10:25 | LDADM ---
This patient, Keith Rosenberg, was admitted to Labor/Delivery/Recovery 106 on 12/18/24 at 09:01. Plans for labor, pain management and were discussed with patient. Patient/family oriented to hospital policies and general routines including ID bracelet, bed and alarms, visiting hours, pain management, procedures, bathroom and other care routines, personal items, smoking policy, room service/diet and guest tray routines, security routines, and visiting hours. Patient/Family are encouraged to report perceived risks to care and to ask questions if they do not understand what they are told or what they should do. See OBIX for further documentation.
[2024-12-18 11:21] LABS: Syphilis IgG/IgM Antibody Non-Reactive (Nonreactive)
[2024-12-18] MEDS: CALCIUM CARBONATE (TUMS) 500 MG (200 MG ELEMENTAL) 400 MG PO (22:51)
[2024-12-19] VITALS (216 sets, daily range): BP systolic 59–268; BP diastolic 19–222; PULSE 28–208; RESP 14–18; TEMP 36.3–36.9; O2SAT 96–100
[2024-12-19] MEDS: LACTATED RINGERS 1,000 ML 125 ML IV CONT ×3 (02:09→08:03)
[2024-12-19] MEDS: AMPICILLIN SODIUM 2 GM in SODIUM CHLORIDE 0.9% IV 100 ML 200 ML IVPB (02:40)
--- NOTE | 2024-12-19 05:30 | P.PNAN_ITS ---
Anes - Eval Pre Procedure Procedure: Labor epidural Date/Time: 12/19/24 05:30 Surgeon: Coy Preop Diagnosis: Abdominal pain with contractions Pre Op Diagnosis: rupture of membrane Patient Data Age: 19 Gender: F Height: 1.6 m Weight: 74.5 kg Last Vital Signs Temp 97.9 F 12/19/24 00:00 Pulse 84 12/19/24 05:30 BP 103/65 12/19/24 05:30 Pulse Ox 99 12/19/24 05:29 O2 Del Method Room Air 12/18/24 10:34 Allergies Allergy/AdvReac Type Severity Reaction Status Date / Time No Known Allergies Allergy Verified 12/14/24 14:45 Home Medications ?Medication ?Instructions ?Recorded ?Confirmed ?Type docosahexaenoic acid 200 mg mg PO 07/26/24 12/07/24 History capsule ( DHA) ferrous sulfate 27 mg iron tablet 27 mg PO DAILY 10/24/24 12/14/24 History docusate sodium 100 mg capsule 100 mg PO DAILY 11/09/24 12/14/24 History (Stool Softener) RSVPreF3 antigen-AS01E 0.5 ml IM ONCE #1 ea 12/07/24 12/14/24 Rx adjuvant(PF) 120 mcg/0.5 mL IM suspension, kit vitamin#30 30 mg iron-10 1 cap PO DAILY #90 caps 12/07/24 12/14/24 Rx mg iron-folic acid 1 mg-omg3 capsule Laboratory Tests 12/18/24 12/18/24 09:29 10:03 WBC 8.9 K/mm3 (4.5-10.0) RBC 4.27 M/mm3 (4.2-5.4) Hgb 11.5 L g/dL (12.0-15.0) Hct 36.4 L % (37.0-47.0) MCV 85.2 fl (80-100) MCH 26.9 pg (26-34) MCHC 31.6 L g/dl (32-36) RDW 15.0 H % (11.5-14.5) Plt Count 114 L k/mm3 (150-375) MPV 13.0 H fl (7.4-10.4) Immature Gran % (Auto) 0.4 % (0-0.5) Neut % (Auto) 73.3 H % (45.5-73.1) Lymph % (Auto) 18.9 % (18.3-44.2) [place] % (Auto) 6.4 % (2.6-8.5) Eos % (Auto) 0.8 % (0-4.4) Baso % (Auto) 0.2 % (0.2-1.2) Lymph # (Auto) 1.68 K/mm3 (0.9-3.2) [place] # (Auto) 0.6 K/mm3 (0.1-0.6) Eos # (Auto) 0.1 K/mm3 (0-0.3) Baso # (Auto) 0.0 K/mm3 (0.0-0.1) Abs Immat Gran (auto) 0.04 H K/mm3 (0.00-0.031) Absolute Neuts (auto) 6.5 K/mm3 (1.3-6.7) Absolute Nucleated RBC 0.000 K/mm3 (0.0-0.012) Nucleated RBC % 0.0 % (0.0-0.2) % Immature Plt Fraction 12.7 H % (0.9-11.2) Membranes Rupture Rom plus positive (Negative) Syphilis IgG/IgM Ab Non-reactive (Nonreactive) Blood Type B Positive Antibody Screen Negative : gestational age HCG: positive Patient hx anesthesia problems: none Family hx anesthesia problems: none Results Review: All pre-operative results and documents have been reviewed as part of the pre- operative evaluation. [facility] Past Medical History Medical History and not yet delivered Overweight (BMI 25.0-29.9) Spontaneous rupture of amniotic membranes Family History Family History Father Hypertension Social History Social History Smoking status: Never smoker Alcohol intake: never Substance use: never Substance use type: does not use Do You Feel Safe in your Home?: Yes Lack of Transportation: YES Lack of Food: Never True Current Housing: I Have Housing Concerned About Future Housing: No Difficulty Paying Gas/Electric Bills: No Difficulty Paying for Meds: No Currently Unemployed: No Education: High School Diploma/GED Difficulty w/ Childcare or Family Care: No Spiritual care concerns: No Exam Day of Procedure 12/19/24 05:30 Patient weight: overweight Airway: Mallampati scale class II
[2024-12-19] MEDS: PHENYLEPHRINE 1,000 MCG/10 ML SYRINGE 100 MCG IV PUSH ×3 (06:24→06:47)
[2024-12-19] MEDS: AMPICILLIN SODIUM 1 GM in SODIUM CHLORIDE 0.9% IV 50 ML 100 ML IVPB (06:51)
[2024-12-19] MEDS: ePHEDrine sulfate INJ 50 MG/ML AMPUL IV PUSH ×2 (07:04→07:14)
--- NOTE | 2024-12-19 09:19 | PM.OBPNVD ---
OB - PN: Subj Subjective Date/time seen: 12/19/24 09:19 Interval history: fht 135, cat 2, epidural placed, cervix 2.5/70/-2. Continue Pitocin. OB - PN: Obj Data Labs 12/18/24 10:03 Labs: Laboratory Results - last 24 hr 12/18/24 12/18/24 09:29 10:03 WBC 8.9 RBC 4.27 Hgb 11.5 L Hct 36.4 L MCV 85.2 MCH 26.9 MCHC 31.6 L RDW 15.0 H Plt Count 114 L MPV 13.0 H Immature Gran % (Auto) 0.4 Neut % (Auto) 73.3 H Lymph % (Auto) 18.9 Shoshone % (Auto) 6.4 Eos % (Auto) 0.8 Baso % (Auto) 0.2 Lymph # (Auto) 1.68 Shoshone # (Auto) 0.6 Eos # (Auto) 0.1 Baso # (Auto) 0.0 Abs Immat Gran (auto) 0.04 H Absolute Neuts (auto) 6.5 Absolute Nucleated RBC 0.000 Nucleated RBC % 0.0 % Immature Plt Fraction 12.7 H Membranes Rupture Rom plus positive Syphilis IgG/IgM Ab Non-reactive Blood Type B Positive Antibody Screen Negative OB - PN A/P Time Spent With Patient Time: Total time spent is greater than 50% in coordination of care (as documented) at patient's floor/unit and/or counseling patient:
[2024-12-19 11:26] LABS: Immature Platelet Fraction Pct 15.0 % (0.9-11.2); Platelet Count Result 94 k/mm3 (150-375)
[2024-12-19] MEDS: ONDANSETRON INJ 4 MG/2 ML VIAL IV PUSH (12:32)
--- NOTE | 2024-12-19 12:33 | PM.OBPNVD ---
OB - PN: Subj Subjective Date/time seen: 12/19/24 12:33 Interval history: fht 140, cat 1, cervix 2.3/80/-2. Patient has been recommended for section due to failure to progress. She has had Pitocin for over 24 hours and has not progressed to active labor. She was informed of risk benefit of section and risk of continuing labor. Questions answered. She agrees with section for failure to progress. OB - PN: Obj Data Labs 12/19/24 10:57 Labs: Laboratory Results - last 24 hr 12/19/24 10:57 Plt Count 94 L MPV 13.0 H % Immature Plt Fraction 15.0 H OB - PN A/P Time Spent With Patient Time: Total time spent is greater than 50% in coordination of care (as documented) at patient's floor/unit and/or counseling patient:
[2024-12-19] MEDS: FAMOTIDINE 20 MG/2 ML VIAL IV PUSH (12:34)
--- NOTE | 2024-12-19 14:18 | P.PCNOB_ITS ---
OB - Delivery Note Procedure Delivery date: 12/19/24 Pre-op diagnosis: Arrest of Dilation Post-op Diagnosis: Same Delivery augmentation: Pitocin Delivery monitor: External FHT, External Uterine and Internal Uterine Procedure Performed: Primary (Failure to progress) Primary branch: low cervical, transverse Surgeon: Ruslan Ingram MD Anesthesia type: Epidural Description of Procedure/Findings: Male , OT presentation. 6lb 13oz, apgars 8,9. After informed consent, risks and benefits of the procedure was discussed with the patient. The patient was taken to the operating room where she was placed in the dorsal lithotomy position with leftward tilt. After the prior placed epidural anesthesia was found to be adequate, she was then prepped and draped in the usual sterile fashion. A Pfannenstiel skin incision was made with a scalpel and carried through to the underlying layer of fascia. The fascia was then nicked in the midline, extending bilaterally. The fascia was dissected off the rectus muscles bluntly and sharply, superiorly and inferiorly. The rectus muscles were in the midline, and peritoneum was identified and entered bluntly. The pelvic organs were visualized. The bladder blade was then inserted. The vesicouterine peritoneum was identified and entered. The low transverse uterine incision was then made with the scalpel and extended with bilateral index fingers in a crescent-shaped fashion. The head was delivered and the rest of the infant was delivered. The nose and mouth suctioned. The cord was clamped twice and cut. The infant was then handed off to the awaiting pediatric staff. The placenta was then delivered manually. The uterine cavity was sponge curretted. Intermittent uterine atony noted. Improved with vigorous massage and Methergine 0.2mg. The uterus was then exteriorized. The uterine incision was then closed with 0 vicryl in a running locked fashion. A second layer of 0 vicryl with figure of eight sutures used. Hemostasis noted. The posterior cul de sac cleared of debri and irrigated. The uterus was then returned to the abdomen. Bilateral gutters were cleared off all clots and debris. The uterine incision was noted to be hemostatic. Interceed placed on uterine incision and vertically on front of uterus. The peritoneum was approximated with 3.0 vicryl. The muscle bellies were inspected and noted to be hemostatic. The subfascial layer was noted to be hemostatic, and the fascia was closed with 0 Vicryl in a running fashion. The subcutaneous layer was irrigated and was then approximated with 3-0 Vicryl. The skin was closed with 4.0 vicryl on a [place] needle. Dermabond applied at incision. All instruments, needle, and lap counts were correct x3. Pressure dressing applied. Moderate clot noted at perineum. 1000mcg cytotec placed rectally. The patient was taken to the recovery room in stable condition. Estimated Blood Loss: 450 Drains: No Packing: No Pathology: None sent Complications: No immediate complications Condition: Stable Disposition: Floor [place] Baby Date of : 12/19/24 Gestational Age by Date: 37 Infant gender: Male position: Right Occiput Transverse Placenta delivery description: Manual Removal Cord Vessel Description: 3 Vessels score one minute: 6 score five minutes: 13
[2024-12-19] MEDS: MEPERIDINE HCL INJ (*CRX) 50 MG/ML AMPUL 12.5 MG IV PUSH (14:38)
[2024-12-19] MEDS: OXYTOCIN 30 UNITS/NS 500 ML 30 UNITS/500 ML BAG 125 UNITS IV CONT (15:05)
[2024-12-19] MEDS: fentaNYL CITRATE INJ (*CRX) 100 MCG/2 ML VIAL 25 MCG IV PUSH ×4 (16:09→16:59)
[2024-12-19] MEDS: MORPHINE SULFATE (*CRX) 2 MG/ML INJ IV PUSH ×3 (17:35→17:56)
--- NOTE | 2024-12-19 18:00 | SUR.PHASEI ---
Pt. had 675 mL yoan urine output from watts catheter
--- NOTE | 2024-12-19 18:16 | OBPPTRN ---
Patient transferred to post room #282 via bed. Support person present. Oriented to unit, room, information board, rooming in, admission packet and security measures. Patient verbalizes understanding.
[2024-12-19] MEDS: ACETAMINOPHEN 500 MG TABLET 1000 MG PO (20:48)
[2024-12-19] MEDS: DOCUSATE SODIUM 100 MG CAPSULE PO (20:48)
[2024-12-19] MEDS: SIMETHICONE 80 MG TAB.CHEW PO (20:48)
[2024-12-19] MEDS: ceFAZolin 1 GM in SODIUM CHLORIDE 0.9% IV 50 ML 100 ML IVPB (23:32)
[2024-12-20 00:15] VITALS: BP 90/52; PULSE 95; RESP 18; TEMP 37.2
[2024-12-20] MEDS: LORATADINE 10 MG TABLET PO (01:44)
[2024-12-20] MEDS: ACETAMINOPHEN 500 MG TABLET 1000 MG PO ×4 (02:35→19:45)
[2024-12-20] MEDS: LIDOCAINE 5% PATCH 1 PATCH TRANSDERM (02:35)
[2024-12-20 04:40] VITALS: BP 96/65; PULSE 90; RESP 16; TEMP 36.9; O2SAT 100
[2024-12-20 05:58] LABS: Hematocrit 27.7 % (37.0-47.0); Hemoglobin 9.0 g/dL (12.0-15.0); Immature Granulocyte Percent A 0.4 % (0-0.5); Immature Platelet Fraction Pct 12.6 % (0.9-11.2); Lymphocytes Absolute Auto 1.83 K/mm3 (0.9-3.2); Mean Corpuscular HGB Conc 32.5 g/dl (32-36); Mean Corpuscular Hemoglobin 27.7 pg (26-34); Mean Corpuscular Volume 85.2 fl (80-100); Nucleated Red Blood Cells Absolute Auto 0.000 K/mm3 (0.0-0.012); Nucleated Red Blood Cells Perc 0.0 % (0.0-0.2); Platelet Count Result 104 k/mm3 (150-375); Red Blood Count 3.25 M/mm3 (4.2-5.4); White Blood Count 10.2 K/mm3 (4.5-10.0)
[2024-12-20] MEDS: oxyCODONE HCL (*CRX) 5 MG TAB IR PO (07:24)
[2024-12-20] MEDS: SIMETHICONE 80 MG TAB.CHEW PO ×3 (07:25→16:39)
--- NOTE | 2024-12-20 07:45 | PC.NURSE ---
Per primary RN, patient has a breast pump set up in her room. Patient wants to rest her nipples for now because they are painful and bleeding. She has used the nipple shield off and on. She is bottle feeding at this time. She states that she will pump around 1030.
[2024-12-20 08:10] VITALS: BP 91/58; PULSE 83; RESP 16; TEMP 37.7; O2SAT 98
[2024-12-20] MEDS: DOCUSATE SODIUM 100 MG CAPSULE PO ×2 (08:41→16:39)
[2024-12-20] MEDS: MULTIVIT/MIN/PREN/FOL AC/IRON TABLET 1 TAB PO (08:41)
--- NOTE | 2024-12-20 10:20 | PC.NURSE ---
Patient called out for pumping assistance. She does not want to pump on the left breast at this time because it is sore and was bleeding last night. She states that baby got some blood during the feeding and we reviewed that is not harmful to baby. Assisted patient to get positioned in bed. She is using the 24mm flange and she was shown how to set the pump to the Initiate mode. Patient is instructed that if she is able to pump only drops she may put them in baby's mouth with a clean finger. Patient would like to use a syringe instead. Patient is instructed to call out if she needs further pumping assistance. Patient called out after pumping to say that she was not able to get any milk out. Educated patient on milk production, colostrum, and normal expectations in the immediate period. She is going to feed a bottle at this time. Patient asked the RN to feed baby since she doesn't know how. Father present and offers to feed baby. Parents shown how to hold baby and put the bottle nipple all the way into baby's mouth. Reviewed use and disposal of formula. Encouraged frequent burping. If baby is unable to take at least 15ml in 20 minutes, parents are instructed to call out for assistance. Parents left to complete the feeding independently. Primary RN updated.
--- NOTE | 2024-12-20 10:30 | WPDANLDPN2 ---
Anes-Prog Note L&D Date/Time: 12/20/24 10:30 Comfortable throughout: section Neuraxial method: spinal Epidural/Spinal procedure site: clean & non-tender Neuro status: Neuro function grossly intact. Cardiovascular status: normal Respiratory status: normal Airway patency: baseline Mental status: baseline Post-Op hydration status: normal Vital Signs: Last Vital Signs Temp 37.7 C H 12/20/24 08:10 Pulse 83 12/20/24 08:10 Resp 16 12/20/24 08:10 BP 91/58 L 12/20/24 08:10 Pulse Ox 98 12/20/24 08:10 O2 Del Method Room Air 12/19/24 18:10 Pain score (VAS): 2 I/O: Intake & Output 12/19/24 12/20/24 12/20/24 23:59 07:59 15:59 Output Total 2500 1000 Balance -2500 -1000 Patient feedback: Patient satisfied with anesthetic care.
--- NOTE | 2024-12-20 10:30 | WPDANLDNPN2 ---
Anes-Prog Note L&D-Neuraxial Date/Time: 12/20/24 10:30 Patient feedback: Patient satisfied with post-operative pain management.
[2024-12-20 12:44] VITALS: BP 83/61; PULSE 103; RESP 16; TEMP 37.3; O2SAT 99
[2024-12-20] MEDS: IBUPROFEN 600 MG TABLET PO ×2 (14:42→19:45)
[2024-12-20] MEDS: PETROLATUM OINTMENT 5 GM PACKET 1 APPLIC (18:08)
[2024-12-20 20:09] VITALS: BP 103/52; PULSE 86; RESP 18; TEMP 37.1; O2SAT 100
[2024-12-21] MEDS: ACETAMINOPHEN 500 MG TABLET 1000 MG PO ×4 (02:30→22:35)
[2024-12-21] MEDS: IBUPROFEN 600 MG TABLET PO ×4 (02:30→22:35)
[2024-12-21 07:45] VITALS: BP 105/67; PULSE 83; RESP 16; TEMP 36.5; O2SAT 100
[2024-12-21] MEDS: SIMETHICONE 80 MG TAB.CHEW PO ×3 (08:52→16:47)
[2024-12-21] MEDS: MULTIVIT/MIN/PREN/FOL AC/IRON TABLET 1 TAB PO (08:53)
[2024-12-21] MEDS: DOCUSATE SODIUM 100 MG CAPSULE PO ×2 (08:54→16:49)
--- NOTE | 2024-12-21 09:36 | P.PNOB_ITS ---
OB - PN: Subj Subjective Date/time seen: 12/20/24 0820 Interval history: NORMAL LOCHIA. SHE HAS AMBULATED WITHOUT PROBLEMS. Patient comments: pain well controlled, tolerating diet and flatus present OB - PN: Obj Data Labs 12/20/24 04:51 OB - PN A/P Assessment and Plan (1) Delivery by section: Status: Acute Assessment and Plan: pod1. Doing well. Routine post op care. Mild asymptomatic anemia. Continue oral therapy. (2) Thrombocytopenia affecting : Code(s): O99.119 - Other diseases of the blood and blood-forming organs and certain disorders involving the immune mechanism complicating , unspecified trimester; D69.6 - Thrombocytopenia, unspecified Status: Acute Assessment and Plan: No signs of bleeding. Platelets increased from last platelet count. Time Spent With Patient Time: Total time spent is greater than 50% in coordination of care (as documented) at patient's floor/unit and/or counseling patient: Review of Systems 2 Review of Systems: All systems reviewed & are unremarkable except as noted in HPI and below Exam 2 Const: General: comfortable and no acute distress Resp: Effort & Inspection: normal respiratory effort Cardio: Rate: regular rate GI: Other: INCISION DRESSING CLEAN Psych: Mental Status: mental status grossly normal
--- NOTE | 2024-12-21 09:53 | PC.NURSE ---
Introductions were made, then consulted with patient to assess needs related to . Discussed with mother her?plans to feed?her and the?experience so far. Per mother she had been attempting at the breast, using her breast pump and then bottle feeding. Resources provided for inpatient and outpatient services with the feeding sheet, mom/baby guide and name written on the communication board. Mother voiced understanding of information and was encouraged to call for assistance with . Reported to the Primary RN.
--- NOTE | 2024-12-21 11:09 | P.PNOB_ITS ---
OB - PN: Subj Subjective Date/time seen: 12/21/24 11:09 Interval history: NORMAL LOCHIA. SHE HAS AMBULATED WITHOUT PROBLEMS. OB - PN: Obj Data Labs 12/20/24 04:51 OB - PN A/P Assessment and Plan (1) Delivery by section: Status: Acute Plan Plan Comments: POD2. Doing well. Routine post care. Time Spent With Patient Time: Total time spent is greater than 50% in coordination of care (as documented) at patient's floor/unit and/or counseling patient: Exam 2 Const: General: comfortable and no acute distress Resp: Effort & Inspection: normal respiratory effort GI: Other: incision intact fundus below umbilicus firm Psych: Mental Status: mental status grossly normal
[2024-12-21 20:00] VITALS: BP 84/61; PULSE 91; RESP 16; TEMP 36.8; O2SAT 100
[2024-12-22] MEDS: IBUPROFEN 600 MG TABLET PO ×2 (04:37→10:14)
[2024-12-22] MEDS: ACETAMINOPHEN 500 MG TABLET 1000 MG PO ×2 (04:37→10:14)
--- NOTE | 2024-12-22 07:01 | P.PNOB_ITS ---
OB - PN: Subj Subjective Date/time seen: 12/22/24 07:01 Interval history: She states adequate pain control. She is ambulating well without problems. She did have a bowel movement. Tolerating regular food. Denies leg pain. Patient comments: pain well controlled OB - PN: Obj Data Labs 12/20/24 04:51 OB - PN A/P Assessment and Plan (1) Delivery by section: Status: Acute Assessment and Plan: postop day 3. Doing well. Discharge today. Discharge precautions discussed. Time Spent With Patient Time: Total time spent is greater than 50% in coordination of care (as documented) at patient's floor/unit and/or counseling patient: Exam 2 Const: General: comfortable and no acute distress Resp: Effort & Inspection: normal respiratory effort Auscultation: clear to auscultation bilaterally GI: Other: Incision intact fundus firm below umbilicus Psych: Mental Status: mental status grossly normal
--- NOTE | 2024-12-22 07:03 | P.DS_ITS ---
DS: Admitting Diagnosis Discharge Date December 12, 2024 Admitting Diagnosis spontaneous rupture of membranes DS: Discharge Diagnosis Discharge Diagnosis (1) Delivery by section: Status: Acute (2) Thrombocytopenia affecting : Code(s): O99.119 - Other diseases of the blood and blood-forming organs and certain disorders involving the immune mechanism complicating , unspecified trimester; D69.6 - Thrombocytopenia, unspecified Status: Acute OB - DS: Summary Hospital Course Hospital Course: she was admitted for spontaneous rupture of membranes. She had Pitocin augmentation she was on Pitocin for more than 24 hours she did not progress to active labor she was recommended for section for failure to progress. She had an uncomplicated section. Her pre surgery platelets 94. On postop day 1 platelets were increased to 104. She did not have any signs or symptoms of bleeding. Lochia was minimal. She had adequate pain control on postop day 1 was ambulating well. She had flatus and bowel movements on postop day 2. OB Procedures : Ultrasound OB Procedures Intrapartum: OB Procedures: : None Peripartum Data Infant Delivery Method: Section Procedures: Procedures Operation Date: 12/19/24 13:00 Actual Procedure Side Surgeon p Section Not Applicable Ruslan Ingram MD Time Spent with Patient Time attestation: Total time spent providing and/or coordinating discharge services: Discharge Plan Discharge Attending physician on discharge: Ruslan Ingram Consulting providers: Hanna Hargrove Discharging Clinician: Ruslan Ingram Anticipated Discharge Date/Time: 12/22/24 07:06 Patient Disposition: Home Activity: may shower, no straining, may drive after 2 weeks and pelvic rest Diet: regular Patient Instructions: Antibiotic Form Patient Language: Other Stand Alone Forms: General Discharge Information Follow-up/Referrals: Ruslan Ingram MD [Physician] - Call for Appointment (Follow up in 2 weeks) Discharge Medications: New oxycodone 5 mg Tablet 5 mg PO Q4H PRN (Reason: Pain Rated 4-6) Qty: 20 0RF ibuprofen 600 mg Tablet 600 mg PO Q6HR Qty: 30 0RF acetaminophen 500 mg Tablet 500 mg PO Q6HR PRN (Reason: pain) Qty: 20 0RF docusate sodium 100 mg Capsule 100 mg PO DAILY Qty: 20 0RF polysaccharide iron complex 150 mg iron Capsule 150 mg PO BIDWM Qty: 60 0RF Rx Instructions: ok to substitute to similar covered med No Action ferrous sulfate 27 mg iron tablet 27 mg PO DAILY docusate sodium [Stool Softener] 100 mg capsule 100 mg PO DAILY DHA 200 mg capsule PO [id number] antigen-AS01E (PF) 120 mcg/0.5 mL suspension for reconstitution 0.5 ml IM ONCE Qty: 1 0RF PNV #[id number] acid-omega3 30 mg iron-10 mg iron-1 mg capsule 1 cap PO DAILY Qty: 90 3RF Date of admission: 12/18/24 09:01 Primary Care Provider: PHYSICIAN,PHARMACY CUSTOMER CARE SPECIALIST Admitting Provider: Ruslan Ingram Attending physician on admission: Ruslan Ingram Condition: Stable
[2024-12-22 07:45] VITALS: BP 89/61; PULSE 92; RESP 16; TEMP 37; O2SAT 100
[2024-12-22] MEDS: DOCUSATE SODIUM 100 MG CAPSULE PO (10:14)
[2024-12-22] MEDS: SIMETHICONE 80 MG TAB.CHEW PO (10:14)
[2024-12-22] MEDS: MULTIVIT/MIN/PREN/FOL AC/IRON TABLET 1 TAB PO (10:14)
--- NOTE | 2024-12-22 10:46 | PC.NURSE ---
Consulted with mother concerning needs and she shared her ability to independently feed infant with a bottle, she is still attempting at the breast and having some success but mostly has been using her breast pump and bottle feeding. Mother had not called out for any assistance with latching baby today. Mother is feeding appropriately for growth of and understands stimulating infant to eat if needed. Infant has had appropriate feedings in the last 24 hours meets the outcomes for weight, output, blood sugar and jaundice at this time. Reinforced understanding of milk production, transition of milk, signs of adequate intake, transition of stool, prevention/relief of engorgement, plugged ducts, mastitis, responsive /feeding, watching for feeding cues, the different methods of stimulating infant to breastfeed 1-3 hours after the start of the last feeding, community resources, and when to call a provider using the resource of the feeding sheet along with the mom and baby guide. Mother voiced understanding of the information shared, is confident to continue effectively her infant at home, when to call for assistance, denies any additional assistance or education at this time. Reported to the Primary RN.
[2024-12-23 10:40] VITALS: BP 101/67; PULSE 101; RESP 18; TEMP 37; O2SAT 100
== END 2024-12-22 11:27 | disposition home or self-care (01) | DRG 787 ==
LOC: ANHLDR 12-19 16:41 → ANHOB2 12-19 18:19 → ANHNUR2 12-19 18:25 → ANHOB2 12-19 18:46
PROVIDERS: Admitting Provider Obstetrics & Gynecology; Visit Provider Obstetrics & Gynecology
PROC: 10D00Z1 Extraction of Products of Conception, Low, Open Approach (ICD-10-PCS; CPT 59514; principal; 2024-12-19 13:00)
DX: O40.3XX0 Polyhydramnios, third trimester, not applicable or unspecified (principal); O99.12 Other diseases of the blood and blood-forming organs and certain disorders involving the immune mechanism complicating childbirth; Z37.0 Single live birth; Z3A.37 37 weeks gestation of pregnancy; O63.0 Prolonged first stage (of labor); O62.1 Secondary uterine inertia; D69.6 Thrombocytopenia, unspecified; O99.824 Streptococcus B carrier state complicating childbirth
CPT/HCPCS: 36415; 84112; 85025; 85049; 85055; 86593; 86850; 86900; 86901; A9270; J0290; J0690; J1200; J2004; J2175; J2210; J2270; J2274; J2371; J2405; J2590; J2795; J3010; J7120

== ENCOUNTER 2025-03-03 13:01 | Emergency (ER) | payer OTHER, SELFPAY ==
--- NOTE | ~2025-03-03 | XR_ITS ---
XR knee LT 3V 03/03/2025 14:30 INDICATION: Left knee pain PROCEDURE: 3 views left knee COMPARISON: No prior studies for comparison. FINDINGS: Fracture, dislocation or subluxation is not identified. No significant joint effusion. The soft tissues appear within normal limits. No foreign bodies are identified. IMPRESSION: 1: NO ACUTE BONE OR JOINT ABNORMALITY IDENTIFIED. Reviewed, dictated and finalized at location O.
--- OUTSIDE RECORDS SUMMARY | 2025-03-03 13:03 | XMS_ITS | Clinical Summary ---
Author Organization [facility] Address [address] [place] [address] Care Team Providers Care Rat Breeder Name Role Phone Unavailable Primary Care Provider Unavailabl e Source Comments [facility],non-owned Affiliates and Associated Physician Practices is amultiple site organization consisting of ambulatory clinics and hospital sitesin [place], [place], [place] and [place]. This disclosure is being madepursuant to the Care Everywhere program and may not contain all information available regarding this patient. Last updated 18.[facility] [employer] Allergies No known active allergies Medications * [...] - 12/14/2024 11:59 PM CDT Hospital Encounter [facility] [address] [place] [address] Cindy Teague MD Discharge Disposition: Home or Self Care 12/02/2024 Results Follow-Up [facility] [address] [place] [address] Cindy Teague MD from Last 3 Months Family History Medical [...] 11/30/2024 11:08 AM CDT Plan of Treatment Health Maintenance Due Date Last Done Comments HIV SCREENING 01/20/2019 HPV VACCINE (1 - 3-dose series) 01/20/2019 CHLAMYDIA/GONORRHEA SCREENING 2020 MENINGOCOCCAL (Group B) VACC INE SHARED DECISION-MAKING (1 of 2 - Standard) 2020 HEPATITIS C SCREENING 01/16/2022 DTAP/TDAP/TD VACCINES (1 - Tdap) 01/20/2023 HEPATITIS B VACCINE (1 of 3 - 19+ 3-dose series) 01/20/2023 DEPRESSION SCREENING 06/08/2024 OB-ONE HOUR GLUCOSE 10/03/2024 OB-RHOGAM INJECTION 10/17/2024 OB-GROUP B STREP SCREEN 12/05/2024 PAP SMEAR 01/20/2025 COVID-19 VACCINE (1 - 2023-2 5 season) 2025 INFLUENZA VACCINE (#1) 2025 ZOSTER VACCINE (1 [...] Supervision of normal first in third trimester ([facility]) Low platelet count Encounter for ultrasound to assess growth ([facility]) from Last 3 Months Results * Sonogram [...] 7 lb 5 oz EFW by Hadlock ([id number]) appropriate Growth Overview Exam date [place] BPD [...] Heart / Thorax 4-chamber view. 3-vessel view. 0-bkzbrs-oxpbwix view. Interventricular septum. Diaphragm. 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
--- OUTSIDE RECORDS SUMMARY | 2025-03-03 13:03 | XMS_ITS | Clinical Summary ---
Author Organization [facility] Address [address] [place] [phone] Phone Care Team Providers Care Formula Maker Name Role Phone Unavailable Primary Care Provider Unavailabl e Encounters Date Type Department Care Team Description 02/21/2025 External Device Data [facility] ABSTRACTION Provider, Abstract 12/21/2024 External Device Data [facility] ABSTRACTION Provider, Abstract 12/20/2024 External Device Data [facility] ABSTRACTION Provider, Abstract from Last 3 Months Social History Tobacco Use Types Packs/Day Years Used Date Smoking Tobacco: Never Assessed Comments Unknown Sex and Gender Information Value Date Recorded Sex Assigned at Not on file 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
--- OUTSIDE RECORDS SUMMARY | 2025-03-03 14:23 | XMS_ITS | Clinical Summary ---
Author Organization [facility] Address [address] [place] [address] Care Team Providers Care Automation Controls Specialist Name Role Phone Unavailable Primary Care Provider Unavailabl e Source Comments [facility],non-owned Affiliates and Associated Physician Practices is amultiple site organization consisting of ambulatory clinics and hospital sitesin [place], [place], [place] and [place]. This disclosure is being madepursuant to the Care Everywhere program and may not contain all information available regarding this patient. Last updated 18.[facility] [employer] Allergies No known active allergies Medications * [...] 12/14/2024 11:59 PM CDT Hospital Encounter [facility] [address] [place] [address] Cindy Teague MD Discharge Disposition: Home or Self Care 12/02/2024 Results Follow-Up [facility] [address] [place] [address] Cindy Teague MD from Last 3 Months [...] Supervision of normal first in third trimester ([facility]) Low platelet count Encounter for ultrasound to assess growth ([facility]) from Last 3 Months Results * Sonogram [...] 7 lb 5 oz EFW by Hadlock ([id number]) appropriate Growth Overview Exam date [place] BPD [...] Heart / Thorax 4-chamber view. 3-vessel view. 5-bekhhq-yznuboa view. Interventricular septum. Diaphragm. 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
--- OUTSIDE RECORDS SUMMARY | 2025-03-03 14:23 | XMS_ITS | Clinical Summary ---
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
== END 2025-03-03 15:55 | disposition home or self-care (01) ==
PROVIDERS: Emergency Provider Emergency Medicine
DX: S80.02XA Contusion of left knee, initial encounter (principal); V49.50XA Passenger injured in collision with unspecified motor vehicles in traffic accident, initial encounter
CPT/HCPCS: 73562; 99283